=== PATIENT | female | born 1980 | race Caucasian/White ===

== ENCOUNTER 2017-03-14 19:57 | Inpatient (IN) | payer MEDICARE, MEDICAID ==
[~2017-03-14] VITALS: Ht 154.9 cm; Wt 73.5 kg
[~2017-03-14 19:57] MED LIST: ATOR10TA9 PO
[2017-03-14 21:30] LABS: BLOOD UREA NITROGEN 17 mg/dL (7-18)
[2017-03-14 21:38] LABS: ASPARTATE AMINO TRANSFERASE 67 U/L (15-37)
[2017-03-14] MEDS ORDERED: OMNIPAQUE 350 MG/ML, 100ML BOTTLE ONE (22:28)
[2017-03-14] MEDS ORDERED: SODIUM CHLORIDE 0.9% 1,000 ML IV ONE (23:11)
[2017-03-14] MEDS ORDERED: SODIUM CHLORIDE 0.9% 1,000 ML IV SCH (23:22)
[2017-03-14] MEDS ORDERED: SODIUM CHLORIDE FLUSH 10ML SYR IVF PRN (23:30)
[2017-03-14] MEDS ORDERED: ONDANSETRON 2MG/ML, 2ML IVPush PRN ×2 (23:30)
[2017-03-14] MEDS: BISACODYL 10 MG SUPP PR SCH (23:30)
[2017-03-14] MEDS ORDERED: ACETAMINOPHEN 325 MG TABLET PO PRN (23:30)
[2017-03-15 00:48] VITALS: BP 109/70
[2017-03-15] MEDS: HEPARIN 5,000 UNITS/ML, 1ML SQ SCH ×3 (01:06→16:25)
[2017-03-15 03:07] LABS: HEPATITIS C VIRUS ANTIBODY Nonreactive (Nonreactive)
[2017-03-15 06:17] LABS: ASPARTATE AMINO TRANSFERASE 38 U/L (15-37); BLOOD UREA NITROGEN 20 mg/dL (7-18)
[2017-03-15] MEDS: BISACODYL 10 MG SUPP PR SCH ×2 (09:00→21:00)
[2017-03-15 09:20] VITALS: BP 118/74
[2017-03-15] MEDS: morphine SULFATE 10 MG/ML, 1ML IVPush PRN ×2 (09:46→21:21)
[2017-03-15 13:56] VITALS: BP 97/62
[2017-03-15 19:55] VITALS: BP 111/70
[2017-03-15] MEDS ORDERED: POTASSIUM CHLORIDE 40 MEQ in SODIUM CHLORIDE 0.9% 1,000 ML IV SCH ×2 (23:22→23:35)
[2017-03-16] MEDS: HEPARIN 5,000 UNITS/ML, 1ML SQ SCH ×3 (00:01→16:30)
[2017-03-16 07:24] LABS: ASPARTATE AMINO TRANSFERASE 33 U/L (15-37); BLOOD UREA NITROGEN 14 mg/dL (7-18)
[2017-03-16 07:37] VITALS: BP 102/62
[2017-03-16] MEDS: BISACODYL 10 MG SUPP PR SCH ×2 (09:00→19:32)
[2017-03-16] MEDS: D5%-0.45% NACL 1,000 ML IV SCH ×2 (09:45→19:21)
[2017-03-16] MEDS: SENNA/DOCUSATE TABLET PO SCH (09:48)
[2017-03-16] MEDS ORDERED: ACETAMINOPHEN 325 MG TABLET PO PRN (12:30)
[2017-03-16] MEDS ORDERED: OXYcodone IR 5MG TABLET PO PRN (12:30)
[2017-03-16 13:42] VITALS: BP 118/77
[2017-03-16 18:38] VITALS: BP 136/72
[2017-03-17] MEDS: HEPARIN 5,000 UNITS/ML, 1ML SQ SCH ×3 (00:28→16:30)
[2017-03-17 01:54] VITALS: BP 97/60
[2017-03-17] MEDS: D5%-0.45% NACL 1,000 ML IV SCH (05:39)
[2017-03-17 06:02] LABS: BLOOD UREA NITROGEN 4 mg/dL (7-18)
[2017-03-17] MEDS: BISACODYL 10 MG SUPP PR SCH (07:40)
[2017-03-17 07:44] VITALS: BP 109/60
[2017-03-17] MEDS: SENNA/DOCUSATE TABLET PO SCH (09:00)
[2017-03-17] MEDS ORDERED: MAGNESIUM SULFATE PMX 2GM/50ML 50 ML IV ONE (11:00)
[2017-03-17] MEDS ORDERED: POTASSIUM PHOSPHATE 44 MEQ in SODIUM CHLORIDE 0.9% 500 ML IV ONE (11:00)
[2017-03-17] MEDS ORDERED: SENN1TAB7 PO (13:26)
[2017-03-17] MEDS ORDERED: BISA10SU65 PR (13:26)
[2017-03-17 14:28] VITALS: BP 111/64
[2017-03-17] MEDS ORDERED: POTASSIUM CHLORIDE 20 MEQ TAB.ER.PRT PO SCH (17:00)
== END 2017-03-17 17:05 | disposition home or self-care (01) | DRG 389 ==
LOC: ED 22:16 → EDIP 23:11 → 3NE 03-15 00:30
DX: K56.7 Ileus, unspecified (principal); E44.1 Mild protein-calorie malnutrition; G71.0 Muscular dystrophy; D72.829 Elevated white blood cell count, unspecified; D75.1 Secondary polycythemia; E78.00 Pure hypercholesterolemia, unspecified; E78.5 Hyperlipidemia, unspecified; E83.39 Other disorders of phosphorus metabolism; E83.42 Hypomagnesemia; E86.0 Dehydration; E87.6 Hypokalemia; Z83.3 Family history of diabetes mellitus; Z87.820 Personal history of traumatic brain injury; Z90.710 Acquired absence of both cervix and uterus; Z68.30 Body mass index [BMI] 30.0-30.9, adult; K22.4 Dyskinesia of esophagus
CPT/HCPCS: 36415; 74000; 74177; 74250; 76700; 80048; 80053; 80074; 81003; 82550; 83690; 83735; 84100; 84439; 84443; 84481; 84703; 85025; 96360; J1644; J3480; Q9967; J2270; J3475; J7030; J7040

== ENCOUNTER 2017-03-28 16:40 | Emergency (ER) | payer MEDICARE, MEDICAID ==
[~2017-03-28] VITALS: Ht 152.4 cm; Wt 64.3 kg
[~2017-03-28 16:40] MED LIST changes: +BISA10SU65 PR; +SENN1TAB7 PO
[2017-03-28 16:48] VITALS: BP 124/75
[2017-03-28] MEDS ORDERED: HYDROcodone/APAP 7.5-325MG/15ML UDC PO ONE (18:00)
[2017-03-28] MEDS ORDERED: HYDROcodone/APAP 7.5-325MG/15ML UDC ONE (18:09)
== END 2017-03-28 19:00 | disposition home or self-care (01) ==
LOC: ED 18:45
DX: J02.8 Acute pharyngitis due to other specified organisms (principal); B97.89 Other viral agents as the cause of diseases classified elsewhere; E78.00 Pure hypercholesterolemia, unspecified
CPT/HCPCS: 87081; 87880; 99284

== ENCOUNTER 2018-12-06 19:57 | Inpatient (IN) | payer MEDICARE, MEDICAID ==
[~2018-12-06] VITALS: Ht 152.4 cm; Wt 68.1 kg
[~2018-12-06 19:57] MED LIST changes: -SENN1TAB7 PO; +SENN1TAB8 PO
[2018-12-06] MEDS ORDERED: POLY17PO29 PO (20:12)
--- NOTE | 2018-12-06 20:13 | NUR ---
SHAILESH. REPORT RECEIVED FROM EMS. PT DANCED AND ROLLED RIGHT ANKLE AROUND 6PM TODAY. PT C/O RIGHT ANKLE PAIN 10/10 AT THIS TIME. DORSALIS PEDAL PULSE +2 BILATERALLY. SKIN INTACT. PT AOX4. RESPS EVEN AND UNLABORED. PT STATES " I CAN'T WALK NOW." BP/SPO2 MONITORS IN PLACE. CALL LIGHT WITHIN REACH. AWAITING EDMD ASSESSMENT AT THIS TIME.
--- NOTE | 2018-12-06 21:17 | NUR ---
PT PROVIDED BEDPAN TO URINATE.
[2018-12-06] MEDS ORDERED: HYDROcodone/APAP 5/325 TABLET ONE (21:20)
--- NOTE | 2018-12-06 21:25 | NUR ---
PT MEDICATED PER EMAR. PT TOLERATED WELL. PT AOX4. RESPS EVEN AND UNLABORED. EDMD AT BEDSIDE AT THIS TIME.
--- NOTE | 2018-12-06 21:29 | NUR ---
preceptor note: radiology reviewed by EVENS Arguello and KARLA Sanchez. Orthopedist consulted by
[2018-12-06] MEDS ORDERED: HYDROcodone/APAP 5/325 TABLET PO ONE (21:30)
[2018-12-06] MEDS ORDERED: MORPHINE SULFATE 4 MG/ML, 1ML ONE (22:49)
--- NOTE | 2018-12-06 22:49 | NUR ---
PIV PLACED BY THIS RN USING ULTRASOUND. PT TOLERATED WELL. EDT AT BEDSIDE TO PLACE SPLINT AT THIS TIME.
--- NOTE | 2018-12-06 22:50 | NUR ---
PT'S PAIN LEVEL IS STILL 10/10 AT THIS TIME. EDMD NOTIFIED.
[2018-12-06] MEDS ORDERED: ONDANSETRON 2MG/ML, 2ML ONE (22:51)
--- NOTE | 2018-12-06 22:57 | NUR ---
PT MEDICATED PER EMAR. PT TOLERATED WELL. PT'S AOX4. RESPS EVEN AND UNLABORED.
[2018-12-06] MEDS ORDERED: MORPHINE SULFATE 4 MG/ML, 1ML IVPush PRN (23:00)
[2018-12-06] MEDS ORDERED: ONDANSETRON 2MG/ML, 2ML IVPush ONE (23:00)
--- NOTE | 2018-12-06 23:04 | NUR ---
SBAR REPORT GIVEN TO SPEEDY JONES. ALL QUESTIONS ANSWERED.
[2018-12-06 23:39] VITALS: BP 115/73
[2018-12-07] MEDS ORDERED: SODIUM CHLORIDE 0.9% 1,000 ML IV SCH (00:09)
[2018-12-07] MEDS ORDERED: BISACODYL 10 MG SUPP PR PRN (00:30)
[2018-12-07] MEDS: ATORVASTATIN 10 MG TABLET PO SCH ×2 (00:30→21:35)
[2018-12-07] MEDS ORDERED: ONDANSETRON 2MG/ML, 2ML IVPush PRN (00:30)
[2018-12-07] MEDS: HEPARIN 5,000 UNITS/ML, 1ML SQ SCH ×3 (01:18→10:55)
[2018-12-07 01:25] VITALS: BP 122/78
[2018-12-07] MEDS: morphine SULFATE 10 MG/ML, 1ML IVPush PRN ×3 (03:19→15:06)
[2018-12-07 05:32] LABS: BASOPHILS # (AUTO) 0.03 x10^3/uL (0-0.1); BASOPHILS % (AUTO) 0 % (0-1); EOSINOPHILS # (AUTO) 0.13 x10^3/uL (0-0.4); EOSINOPHILS % (AUTO) 1 % (1-7); LYMPHOCYTES # (AUTO) 2.92 x10^3/uL (1-3.4); LYMPHOCYTES % (AUTO) 24 % (22-44); MD NO; MEAN CORPUSCULAR HEMOGLOBIN 30.7 pg (27.0-34.8); MEAN CORPUSCULAR HGB CONC 31.8 g/dL (32.4-35.8); MEAN CORPUSCULAR VOLUME 96.3 fL (80-100); MEAN PLATELET VOLUME 9.1 fL (7.4-10.4); MONOCYTES # (AUTO) 0.94 x10^3/uL (0.2-0.8); MONOCYTES % (AUTO) 8 % (2-9); NEUTROPHILS # (AUTO) 8.17 x10^3/uL (1.8-6.8); NEUTROPHILS % (AUTO) 67 % (42-75); PLATELET COUNT 295 x10^3/uL (130-400); RED BLOOD COUNT 4.47 x10^6/uL (3.82-5.3); RED CELL DISTRIBUTION WIDTH 15.1 % (9.6-15.2)
[2018-12-07 05:46] LABS: CALCIUM 8.5 mg/dL (8.5-10.1); CHLORIDE 117 mmol/L (98-107)
[2018-12-07 05:52] LABS: ALANINE AMINOTRANSFERASE 70 U/L (12-78); ALBUMIN 2.8 g/dL (3.4-5.0); ALKALINE PHOSPHATASE 243 U/L (45-117); ANION GAP 4 mmol/L (5-15); BILIRUBIN,TOTAL 0.4 mg/dL (0.2-1.0); CREATININE 0.34 mg/dL (0.55-1.02); TOTAL PROTEIN 6.6 g/dL (6.4-8.2)
[2018-12-07 07:33] VITALS: BP 106/62
[2018-12-07] MEDS: SENNA/DOCUSATE TABLET PO SCH (07:44)
[2018-12-07] MEDS: D5%-0.45NACL+KCL 20MEQ 1,000 ML IV SCH (10:53)
[2018-12-07 12:25] VITALS: BP 96/62
[2018-12-07] MEDS ORDERED: NEOSPORIN OINT, 15GM ONE (15:12)
[2018-12-07] MEDS ORDERED: BUPIVACAINE/PF-EPI 0.5% 1:200K ONE (15:12)
[2018-12-07] MEDS ORDERED: PROPOFOL 10 MG/ML, 20ML ONE (18:36)
[2018-12-07] MEDS ORDERED: SUGAMMADEX 200 MG/2 ML IVPush ONE (18:36)
[2018-12-07] MEDS ORDERED: LIDOCAINE 2% 100MG/5ML SYRINGE ONE (18:36)
[2018-12-07] MEDS ORDERED: DEXAMETHASONE 4 MG/ML, 1ML ONE (18:36)
[2018-12-07] MEDS ORDERED: MIDAZOLAM 1 MG/ML, 2ML ONE (18:39)
[2018-12-07] MEDS ORDERED: FENTANYL PF 100 MCG/2ML ONE (19:10)
[2018-12-07] MEDS ORDERED: ALBUTEROL SULFATE 2.5 MG/3 ML NPPB PRN (20:00)
[2018-12-07] MEDS ORDERED: LORazepam 2 MG/ML, 1ML IVPush PRN (20:00)
[2018-12-07] MEDS ORDERED: FENTANYL PF 100 MCG/2ML IV PRN (20:00)
[2018-12-07] MEDS ORDERED: ONDANSETRON 2MG/ML, 2ML IV PRN (20:00)
[2018-12-07] MEDS ORDERED: MORPHINE SULFATE 4 MG/ML, 1ML IVPush PRN (20:00)
[2018-12-07] MEDS ORDERED: METOCLOPRAMIDE 5 MG/ML, 2ML IV PRN (20:00)
[2018-12-07] MEDS ORDERED: HYDROmorphone 2 MG/ML, 1ML IVPush PRN (20:00)
[2018-12-07] MEDS ORDERED: OXYcodone 5 MG/5 ML ORAL.SOL UDC PO PRN (20:00)
[2018-12-07] MEDS ORDERED: HALOPERIDOL 5 MG/ML IV PRN (20:00)
[2018-12-07] MEDS: ACETAMINOPHEN 325 MG TABLET PO PRN ×2 (20:57→21:00)
[2018-12-07] MEDS ORDERED: ACETAMINOPHEN 650 MG/20.3 ML UDC ONE (20:57)
[2018-12-08 00:50] VITALS: BP 109/61
[2018-12-08] MEDS: HEPARIN 5,000 UNITS/ML, 1ML SQ SCH (00:53)
[2018-12-08] MEDS: D5%-0.45NACL+KCL 20MEQ 1,000 ML IV SCH (03:54)
[2018-12-08] MEDS: CEFAZOLIN PMX 1GM/50ML 50 ML IV SCH ×2 (03:54→11:39)
[2018-12-08 05:26] LABS: BASOPHILS # (AUTO) 0.01 x10^3/uL (0-0.1); BASOPHILS % (AUTO) 0 % (0-1); EOSINOPHILS % (AUTO) 0 % (1-7); LYMPHOCYTES # (AUTO) 0.76 x10^3/uL (1-3.4); LYMPHOCYTES % (AUTO) 6 % (22-44); MD NO; MEAN CORPUSCULAR HEMOGLOBIN 31.5 pg (27.0-34.8); MEAN CORPUSCULAR HGB CONC 32.6 g/dL (32.4-35.8); MEAN CORPUSCULAR VOLUME 96.4 fL (80-100); MONOCYTES # (AUTO) 0.51 x10^3/uL (0.2-0.8); MONOCYTES % (AUTO) 4 % (2-9); NEUTROPHILS % (AUTO) 89 % (42-75); PLATELET COUNT 257 x10^3/uL (130-400); RED BLOOD COUNT 4.11 x10^6/uL (3.82-5.3); RED CELL DISTRIBUTION WIDTH 14.9 % (9.6-15.2)
[2018-12-08] MEDS: ACETAMINOPHEN 325 MG TABLET PO PRN (05:28)
[2018-12-08 05:33] LABS: ALBUMIN 2.5 g/dL (3.4-5.0); ANION GAP 4 mmol/L (5-15); CALCIUM 8.5 mg/dL (8.5-10.1); CHLORIDE 114 mmol/L (98-107)
[2018-12-08 05:37] LABS: ALANINE AMINOTRANSFERASE 52 U/L (12-78); ALKALINE PHOSPHATASE 226 U/L (45-117); BILIRUBIN,TOTAL 0.3 mg/dL (0.2-1.0); CREATININE 0.38 mg/dL (0.55-1.02); TOTAL PROTEIN 6.2 g/dL (6.4-8.2)
[2018-12-08 07:53] VITALS: BP 103/59
[2018-12-08] MEDS: SENNA/DOCUSATE TABLET PO SCH (09:03)
[2018-12-08] MEDS: ENOXAPARIN 40 MG/0.4 ML SQ SCH (09:03)
[2018-12-08] MEDS: OXYcodone/APAP 5/325MG TABLET PO PRN ×2 (10:05→14:23)
[2018-12-08 12:29] VITALS: BP 110/65
[2018-12-08 18:32] VITALS: BP 112/70
[2018-12-08] MEDS: ATORVASTATIN 10 MG TABLET PO SCH (20:58)
[2018-12-09 00:20] VITALS: BP 110/65
[2018-12-09 05:51] LABS: ALBUMIN 2.3 g/dL (3.4-5.0); ANION GAP 4 mmol/L (5-15); CALCIUM 8.3 mg/dL (8.5-10.1); CHLORIDE 116 mmol/L (98-107)
[2018-12-09 05:56] LABS: ALANINE AMINOTRANSFERASE 50 U/L (12-78); ALKALINE PHOSPHATASE 221 U/L (45-117); BILIRUBIN,TOTAL 0.3 mg/dL (0.2-1.0); CREATININE 0.47 mg/dL (0.55-1.02); TOTAL PROTEIN 5.8 g/dL (6.4-8.2)
[2018-12-09 06:38] VITALS: BP 113/67
[2018-12-09] MEDS: SENNA/DOCUSATE TABLET PO SCH (09:12)
[2018-12-09] MEDS: ENOXAPARIN 40 MG/0.4 ML SQ SCH (09:13)
[2018-12-09] MEDS: OXYcodone/APAP 5/325MG TABLET PO PRN ×2 (09:26→17:28)
[2018-12-09] MEDS: POLYETHYLENE GLYCOL 17 GM PACKET PO PRN (09:26)
[2018-12-09] MEDS ORDERED: DEXTROSE 5% 1,000 ML IV SCH (09:30)
[2018-12-09 13:06] VITALS: BP 110/62
[2018-12-09 19:03] VITALS: BP 113/66
[2018-12-09] MEDS: ATORVASTATIN 10 MG TABLET PO SCH (21:00)
[2018-12-10 02:07] VITALS: BP 113/68
[2018-12-10] MEDS: OXYcodone/APAP 5/325MG TABLET PO PRN ×2 (02:10→10:53)
[2018-12-10 05:56] LABS: ANION GAP 4 mmol/L (5-15); CALCIUM 8.6 mg/dL (8.5-10.1); CHLORIDE 111 mmol/L (98-107)
[2018-12-10 05:58] LABS: CREATININE 0.27 mg/dL (0.55-1.02)
[2018-12-10 05:59] LABS: BASOPHILS # (AUTO) 0.05 x10^3/uL (0-0.1); BASOPHILS % (AUTO) 1 % (0-1); EOSINOPHILS # (AUTO) 0.26 x10^3/uL (0-0.4); EOSINOPHILS % (AUTO) 3 % (1-7); LYMPHOCYTES # (AUTO) 2.13 x10^3/uL (1-3.4); LYMPHOCYTES % (AUTO) 23 % (22-44); MD NO; MEAN CORPUSCULAR HEMOGLOBIN 31.9 pg (27.0-34.8); MEAN CORPUSCULAR HGB CONC 33.6 g/dL (32.4-35.8); MEAN CORPUSCULAR VOLUME 94.9 fL (80-100); MEAN PLATELET VOLUME 8.7 fL (7.4-10.4); MONOCYTES # (AUTO) 0.84 x10^3/uL (0.2-0.8); MONOCYTES % (AUTO) 9 % (2-9); NEUTROPHILS # (AUTO) 6.16 x10^3/uL (1.8-6.8); NEUTROPHILS % (AUTO) 65 % (42-75); PLATELET COUNT 232 x10^3/uL (130-400); RED CELL DISTRIBUTION WIDTH 14.6 % (9.6-15.2)
[2018-12-10 07:00] VITALS: BP 106/59
[2018-12-10 08:00] LABS: ALBUMIN 2.2 g/dL (3.4-5.0); BILIRUBIN, DIRECT 0.4 mg/dL (0.1-0.2)
[2018-12-10 08:02] LABS: BILIRUBIN,INDIRECT 0.3 mg/dL (0.0-2.0); BILIRUBIN,TOTAL 0.7 mg/dL (0.2-1.0); TOTAL PROTEIN 5.9 g/dL (6.4-8.2)
[2018-12-10] MEDS ORDERED: LACTULOSE 20 GM/30 ML UDC PO ONE (08:30)
[2018-12-10] MEDS: ENOXAPARIN 40 MG/0.4 ML SQ SCH (08:34)
[2018-12-10] MEDS: SENNA/DOCUSATE TABLET PO SCH (08:34)
[2018-12-10] MEDS ORDERED: DEXTROSE 5% 1,000 ML IV SCH (09:30)
[2018-12-10] MEDS ORDERED: BISACODYL 10 MG SUPP PR SCH (11:00)
[2018-12-10 13:06] VITALS: BP 121/65
[2018-12-10] MEDS ORDERED: MAGNESIUM CITRATE 300ML ORAL SOL PO ONE (14:00)
[2018-12-10] MEDS ORDERED: MAGN296S9 PO (14:04)
[2018-12-10] MEDS ORDERED: TRAM50TA2 PO (14:04)
[2018-12-10] MEDS ORDERED: OXYC1TAB7 PO (14:04)
[2018-12-10] MEDS ORDERED: ENOX40SY4 SQ (14:04)
[2018-12-10] MEDS ORDERED: ACET325T14 PO (14:04)
[2018-12-10] MEDS ORDERED: BISA10SU65 PR (14:04)
[2018-12-10] MEDS ORDERED: SENN1TAB8 PO (14:04)
[2018-12-10] MEDS: POLYETHYLENE GLYCOL 17 GM PACKET PO PRN (14:21)
[2018-12-10 16:37] VITALS: BP 125/78
== END 2018-12-10 16:46 | DRG 492 ==
LOC: ED 21:09 → EDIP 22:36 → SUATTDRO 22:39 → 4NOR 23:00
PROVIDERS: ADMIT Hospitalist; ATTEND Hospitalist
PROC: BW1C1ZZ Fluoroscopy of Lower Extremity using Low Osmolar Contrast (ICD-10-PCS; 2018-12-07)
PROC: 0QSJ04Z Reposition Right Fibula with Internal Fixation Device, Open Approach (ICD-10-PCS; principal; 2018-12-07 18:45)
PROC: 0QSG06Z Reposition Right Tibia with Intramedullary Internal Fixation Device, Open Approach (ICD-10-PCS; 2018-12-07 18:45)
DX: S82.231A Displaced oblique fracture of shaft of right tibia, initial encounter for closed fracture (principal); E43 Unspecified severe protein-calorie malnutrition; E87.0 Hyperosmolality and hypernatremia; E78.00 Pure hypercholesterolemia, unspecified; E78.5 Hyperlipidemia, unspecified; G71.00 Muscular dystrophy, unspecified; G71.11 Myotonic muscular dystrophy; K59.00 Constipation, unspecified; S82.53XA Displaced fracture of medial malleolus of unspecified tibia, initial encounter for closed fracture; S82.61XA Displaced fracture of lateral malleolus of right fibula, initial encounter for closed fracture; W01.0XXA Fall on same level from slipping, tripping and stumbling without subsequent striking against object, initial encounter; X50.1XXA Overexertion from prolonged static or awkward postures, initial encounter; Z87.820 Personal history of traumatic brain injury; Z83.3 Family history of diabetes mellitus; Z90.710 Acquired absence of both cervix and uterus; Z88.8 Allergy status to other drugs, medicaments and biological substances; Z68.29 Body mass index [BMI] 29.0-29.9, adult
CPT/HCPCS: 29515; 36415; 76000; 80048; 80053; 80076; 85025; C1713; G0378; J0690; J1100; J1644; J1650; J2250; J2405; J2704; J3010; J7070; J2270; J3480; J7030

== ENCOUNTER 2019-02-18 17:20 | Inpatient (IN) | payer MEDICARE, MEDICAID ==
[~2019-02-18] VITALS: Ht 157.5 cm; Wt 60.8 kg
[~2019-02-18 17:20] MED LIST changes: +ACET325T14 PO; +ENOX40SY4 SQ; +ETOMIDATE 20 MG/10 ML ONE; +MAGN296S9 PO; +MIDAZOLAM 1 MG/ML, 5ML ONE; +OXYC1TAB7 PO; +POLY17PO29 PO; +PROPOFOL 10 MG/ML, 100ML IV ONE; +SENN-177 PO; -SENN1TAB8 PO; +SUCCINYLCHOLINE 20 MG/ML, 10ML ONE; +TRAM50TA2 PO
[2019-02-18] MEDS ORDERED: SODIUM CHLORIDE FLUSH 10ML SYR IVF ONE (18:00)
[2019-02-18] MEDS ORDERED: ACETAMINOPHEN 325 MG TABLET PO ONE (18:00)
[2019-02-18] MEDS ORDERED: ACETAMINOPHEN 325 MG TABLET ONE (18:05)
[2019-02-18 18:28] LABS: BASOPHILS % (AUTO) 0 % (0-1); EOSINOPHILS % (AUTO) 0 % (1-7); LYMPHOCYTES # (AUTO) 0.27 x10^3/uL (1-3.4); LYMPHOCYTES % (AUTO) 2 % (22-44); MD NO; MEAN CORPUSCULAR HEMOGLOBIN 31.1 pg (27.0-34.8); MEAN CORPUSCULAR HGB CONC 32.7 g/dL (32.4-35.8); MEAN CORPUSCULAR VOLUME 95.2 fL (80-100); MEAN PLATELET VOLUME 8.8 fL (7.4-10.4); MONOCYTES # (AUTO) 0.98 x10^3/uL (0.2-0.8); MONOCYTES % (AUTO) 6 % (2-9); NEUTROPHILS # (AUTO) 14.11 x10^3/uL (1.8-6.8); NEUTROPHILS % (AUTO) 92 % (42-75); PLATELET COUNT 254 x10^3/uL (130-400); RED BLOOD COUNT 5.48 x10^6/uL (3.82-5.3); RED CELL DISTRIBUTION WIDTH 15.4 % (9.6-15.2)
--- NOTE | 2019-02-18 18:34 | NUR ---
Pt presents to ED from [facility] with c/o productive cough, generalized weakness, and fevers for one week. Pt has audible rhonci from bedside. Pt wearing 5L oxygen via NC at is between 95-98%, pt does not wear oxygen at baseline. Pt is drowsy but easily arousable to voice and is oriented x 4. Pt resting on gurney connected to secured entrance monitor, NIBP, and continous pulse ox. Both bed rails up for safety measures. Call light within reach. PIV attempting to be established. Ultrasound PIV to be done by ED balance staff staker.
[2019-02-18 18:38] LABS: ALBUMIN 3.3 g/dL (3.4-5.0); CALCIUM 9.6 mg/dL (8.5-10.1); CREATININE 0.53 mg/dL (0.55-1.02)
[2019-02-18 18:42] LABS: ANION GAP 8 mmol/L (5-15); CHLORIDE 113 mmol/L (98-107)
--- NOTE | 2019-02-18 18:42 | NUR ---
ARRIVED IN ROOM, PT REMOVED NC AND IS REFUSING NC TO BE PLACED BACK ON. NON-REBREATHER MASK PLACED ON PT AT 6L AND PT IS AT 76%. ED MD AT BEDSIDE. ED MD REQUESTING RSI KIT AND PREPARE FOR INTUBATION.
--- NOTE | 2019-02-18 18:56 | NUR ---
At 185 20 mg of Etomidate and 100 mg of succinycholine provided piv per ED MD verbal order and EMAR. AT 1851 8.0 ET tube placed at 23 at right upper lip.
[2019-02-18] MEDS ORDERED: ETOMIDATE 20 MG/10 ML IV ONE (19:00)
[2019-02-18] MEDS ORDERED: SUCCINYLCHOLINE 20 MG/ML, 10ML IVPush ONE (19:00)
[2019-02-18] MEDS ORDERED: SODIUM CHLORIDE 0.9% 1,000ML IVBOLUS ONE ×2 (19:00→20:00)
[2019-02-18] MEDS ORDERED: MIDAZOLAM 1 MG/ML, 2ML IVPush ONE (19:00)
--- NOTE | 2019-02-18 19:00 | NUR ---
ED staff at bedside providing medication per EMAR. RT at bedside managing ventilator. X-ray at bedside checking tube placement.
[2019-02-18] MEDS: PROPOFOL 100 ML IV PRN (19:07)
--- NOTE | 2019-02-18 19:07 | NUR ---
THIS RN ASSISTED WITH PLACING PIV IN PT AND MEDICATING WITH RSI MEDICATIONS FOR INTUBATION. PT HAD SUDDEN RESPIRATORY COMPROMISE THAT THIS RN AND DREA RN RESPONDED TO AND GOT DR. RODRIGUEZ TO BEDSIDE TO EVAULATE. THIS RN ASSITED AND PASSED INFORMATION TO INCOMING QUINCY JONES. ANA RT MANAGING VENT AT THIS TIME.
--- NOTE | 2019-02-18 19:10 | NUR ---
LATE note for 185. ROBERT Rubin at bedside. Provided bedside report to ROBERT Rubin. All questions answered, ROBERT Rubin to assume care of pt.
--- NOTE | 2019-02-18 19:29 | NUR ---
ASSUMED CARE OF PATIENT. REPORT GIVEN FROM ROBERT GORDON DR IN ROOM
[2019-02-18] MEDS: MIDAZOLAM 1 MG/ML, 2ML IVPush PRN ×4 (19:39→22:52)
[2019-02-18] MEDS ORDERED: MIDAZOLAM HCL 25 MG in SODIUM CHLORIDE 0.9% 245 ML IV PRN (19:47)
[2019-02-18] MEDS ORDERED: SODIUM CHLORIDE 0.9% 1,000 ML IV ONE ×2 (19:47→21:30)
[2019-02-18] MEDS ORDERED: CEFTRIAXONE PMX 1GM/50ML 50 ML ONE (19:52)
--- NOTE | 2019-02-18 19:52 | NUR ---
both blood cultures drawn before abx given
[2019-02-18] MEDS ORDERED: AZITHROMYCIN 500 MG in SODIUM CHLORIDE 0.9% 250 ML IVPB ONE (20:00)
[2019-02-18] MEDS ORDERED: CEFTRIAXONE PMX 1GM/50ML 50 ML IVPB ONE (20:00)
--- NOTE | 2019-02-18 20:03 | NUR ---
LAB IN ROOM GETTING ABG.
--- NOTE | 2019-02-18 20:36 | NUR ---
DR RODRIGUEZ IN ROOM FOR CENTRAL LINE
[2019-02-18] MEDS ORDERED: PROPOFOL 100 ML IV PRN (20:50)
[2019-02-18] MEDS ORDERED: PHARMACY MAY ADJ FOR RENAL FX MC SCH (21:00)
[2019-02-18] MEDS ORDERED: LIDOCAINE-MPF 1%, 2ML ENDO PRN (21:00)
[2019-02-18] MEDS: INSULIN LISPRO 100 UNITS/ML, PEN SQ-INSULIN SCH (21:00)
[2019-02-18] MEDS ORDERED: LACTULOSE 20 GM/30 ML UDC NG PRN (21:00)
[2019-02-18] MEDS ORDERED: SENNA/DOCUSATE TABLET NG PRN (21:00)
[2019-02-18] MEDS ORDERED: DEXTROSE 50%, 50ML SYRINGE IVPush PRN (21:00)
[2019-02-18] MEDS ORDERED: BISACODYL 10 MG SUPP PR PRN ×2 (21:00→22:30)
[2019-02-18] MEDS ORDERED: DEXTROSE 4 GM TAB.CHEW PO PRN (21:00)
[2019-02-18] MEDS ORDERED: SENNA 176 MG/5 ML ORAL SOL NG PRN (21:00)
[2019-02-18] MEDS ORDERED: GLUCAGON 1 MG IM PRN (21:00)
[2019-02-18] MEDS ORDERED: MIDAZOLAM 1 MG/ML, 2ML ONE (21:03)
[2019-02-18] MEDS: NOREPINEPHRINE 4 MG in SODIUM CHLORIDE 0.9% 246 ML IV PRN (21:11)
--- NOTE | 2019-02-18 21:25 | NUR ---
PT READY FOR CT
[2019-02-18 21:28] LABS: INTERNATIONAL NORMALIZED RATIO 1.01 (0.93-1.1); PROTHROMBIN TIME 10.6 Seconds (9.6-11.5)
[2019-02-18] MEDS ORDERED: NOREPINEPHRINE 4 MG in SODIUM CHLORIDE 0.9% 246 ML IV PRN (21:30)
[2019-02-18] MEDS: CEFTRIAXONE PMX 1GM/50ML 50 ML IV SCH (21:30)
[2019-02-18] MEDS ORDERED: SODIUM CHLORIDE FLUSH 10ML SYR IVF PRN (21:30)
[2019-02-18 21:47] LABS: TROPONIN I 0.104 ng/mL (0.000-0.045)
--- NOTE | 2019-02-18 21:47 | NUR ---
PT IN CT. DR RODRIGUEZ IN CT WITH PATIENT. RT IN CT
[2019-02-18] MEDS ORDERED: OMNIPAQUE 350 MG/ML, 100ML BOTTLE ONE (21:56)
[2019-02-18 22:28] LABS: MICROSCOPIC INDICATED
[2019-02-18] MEDS ORDERED: DOCUSATE 100 MG CAPSULE PO PRN (22:30)
[2019-02-18] MEDS: GUAIFENESIN 200 MG TABLET PO SCH (22:30)
[2019-02-18] MEDS ORDERED: morphine SULFATE 10 MG/ML, 1ML IVPush PRN (22:30)
[2019-02-18] MEDS ORDERED: hydrALAzine 20 MG/ML, 1ML IVPush PRN (22:30)
[2019-02-18] MEDS ORDERED: POTASSIUM CHLORIDE 40 MEQ in SODIUM CHLORIDE 0.9% 500 ML IV ONE (22:30)
[2019-02-18] MEDS ORDERED: ONDANSETRON ODT 4 MG PO PRN (22:30)
[2019-02-18] MEDS ORDERED: POLYETHYLENE GLYCOL 17 GM PACKET PO PRN (22:30)
[2019-02-18] MEDS ORDERED: ONDANSETRON 2MG/ML, 2ML IVPush PRN (22:30)
[2019-02-18] MEDS: FAMOTIDINE 20 MG/2 ML IVPush SCH (22:30)
[2019-02-18] MEDS ORDERED: PROMETHAZINE 25 MG/ML, 1ML IM PRN (22:30)
[2019-02-18] MEDS ORDERED: PIPERACILLIN/TAZO/PMX 3.375GM 50 ML ONE (22:43)
--- NOTE | 2019-02-18 22:43 | NUR ---
HOLD ZITHROMAX PER DR DAWN
[2019-02-18] MEDS: PIPERACILLIN/TAZO/PMX 3.375GM 50 ML IV SCH (22:51)
--- NOTE | 2019-02-18 22:53 | NUR ---
DR DAWN AWARE OF VS
[2019-02-18] MEDS ORDERED: FAMOTIDINE 20 MG/2 ML ONE (22:58)
[2019-02-18] MEDS: FAMOTIDINE 20 MG/2 ML IV SCH (23:00)
[2019-02-18] MEDS: ALBUTEROL/IPRATROPIUM 2.5MG/0.5MG, 3 ML INLINE SCH (23:00)
[2019-02-18] MEDS: SODIUM CHLORIDE FLUSH 10ML SYR IVF SCH (23:00)
[2019-02-18 23:02] LABS: HEMOGLOBIN A1C 5.3 % (4.2-6.3)
[2019-02-18] MEDS ORDERED: ALBUTEROL/IPRATROPIUM 2.5MG/0.5MG, 3 ML ONE (23:12)
[2019-02-18 23:16] LABS: FREE T4 (FREE THYROXINE) 1.18 ng/dL (0.76-1.46); THYROID STIMULATING HORMONE 0.241 mIU/L (0.358-3.740)
[2019-02-18] MEDS: SODIUM CHLORIDE 0.9% 1,000 ML IV SCH (23:25)
--- NOTE | 2019-02-18 23:26 | NUR ---
RT AT BEDSIDE.
[2019-02-18] MEDS ORDERED: ACETAMINOPHEN 650 MG SUPP PR PRN (23:30)
[2019-02-18] MEDS ORDERED: ACETAMINOPHEN 650 MG SUPP ONE (23:30)
--- NOTE | 2019-02-18 23:49 | NUR ---
FAMILY AT BED. DR MERINO AWARE OF VS. RECTAL TYLENOL GIVEN RT IN ROOM WILL CONTINUE TO MONITOR.
[2019-02-18] MEDS ORDERED: HEPARIN 5,000 UNITS/ML, 1ML ONE (23:54)
[2019-02-18] MEDS: HEPARIN 5,000 UNITS/ML, 1ML SQ SCH (23:56)
[2019-02-19] MEDS: METRONIDAZOLE PMX 500MG/100ML 100 ML IV SCH ×4 (00:08→18:37)
[2019-02-19] MEDS: ATORVASTATIN 10 MG TABLET PO SCH (00:12)
--- NOTE | 2019-02-19 00:13 | NUR ---
DR ALFARO HAS SEEN PATIENT. WILL CONTINUE TO MONITOR.
[2019-02-19] MEDS: NOREPINEPHRINE 4 MG in SODIUM CHLORIDE 0.9% 246 ML IV PRN ×5 (00:17→22:50)
--- NOTE | 2019-02-19 00:24 | NUR ---
REPORT GIVEN TO ROBETR GASPAR FOR LUNCH
[2019-02-19] MEDS ORDERED: FENTANYL PF 2,500 MCG in SODIUM CHLORIDE 0.9% 200 ML IV PRN (00:30)
[2019-02-19] MEDS ORDERED: ACETAMINOPHEN 325 MG SUPP ONE (00:50)
--- NOTE | 2019-02-19 01:08 | NUR ---
TASK RN: PTS LEVOPHED TITRATED UP TO 10MCG AT THIS TIME MAP HAS BEEN BELOW 55 ON 7MCG. PT ALSO MOVED TO ICU HOSPITAL BED FOR SKIN PROTECTION AND COMFORT. PT ALSO CLEANED. PT HAS ONE BM AND WAS GIVEN ME TYLENOL 650 MG AND ORDER WAS CLARIFIED WITH MD MERINO. PT TEMP IMPROVING.
--- NOTE | 2019-02-19 01:25 | NUR ---
FAMILY AT BEDSIDE. RADIO SURVEY WORKER ON NSR NOTED DR MERINO AWARE OF VS. TYLENOL GIVEN WILL CONTINUE TO MONITOR.
[2019-02-19] MEDS ORDERED: ACETAMINOPHEN 650 MG SUPP PR ONE (01:30)
[2019-02-19] MEDS: VASOPRESSIN 100 UNIT in SODIUM CHLORIDE 0.9% 495 ML IV PRN ×2 (02:02→03:27)
--- NOTE | 2019-02-19 02:15 | NUR ---
lab in room. rt in room. cardiac care unit nurse on NSR noted. VS stable. will continue to monitor.
[2019-02-19 02:45] LABS: TROPONIN I 0.326 ng/mL (0.000-0.045)
--- NOTE | 2019-02-19 03:24 | NUR ---
PT MOVED TO T3. COOLING MEASURES IN PLACE. COOLING BLANKET ON. VS STABLE TEAM LEADER/RESEARCH PSYCHOLOGIST ON. NSR NOTED. WILL CONTINUE TO MONITOR.
[2019-02-19] MEDS ORDERED: NOREPINEPHRINE 8 MG in SODIUM CHLORIDE 0.9% 246 ML IV PRN (03:30)
[2019-02-19] MEDS ORDERED: NOREPINEPHRINE 8 MG in SODIUM CHLORIDE 0.9% 242 ML IV PRN (03:30)
[2019-02-19] MEDS ORDERED: PROPOFOL 100 ML IV ONE (03:32)
[2019-02-19] MEDS: PROPOFOL 100 ML IV PRN ×2 (04:22→18:27)
[2019-02-19] MEDS ORDERED: PIPERACILLIN/TAZO/PMX 3.375GM 50 ML ONE (04:28)
[2019-02-19] MEDS: PIPERACILLIN/TAZO/PMX 3.375GM 50 ML IV SCH ×4 (04:34→22:53)
--- NOTE | 2019-02-19 04:36 | NUR ---
UNDERCOVER OPERATOR ON. NSR NOTED. VS STABLE AT THIS TIME. PT'S TEMP IS 101.3 COOLING BLANKET ON. WILL CONTINUE TO MONITOR.
[2019-02-19] MEDS: ALBUTEROL/IPRATROPIUM 2.5MG/0.5MG, 3 ML INLINE SCH ×5 (05:00→22:37)
[2019-02-19] MEDS ORDERED: METRONIDAZOLE PMX 500MG/100ML 100 ML ONE ×2 (05:43)
--- NOTE | 2019-02-19 06:03 | NUR ---
LAB IN ROOM
--- NOTE | 2019-02-19 06:20 | NUR ---
attempted to call MD to notify of trop will attempt again
[2019-02-19] MEDS ORDERED: ALBUTEROL/IPRATROPIUM 2.5MG/0.5MG, 3 ML ONE (06:33)
[2019-02-19 06:35] LABS: CHLORIDE 124 mmol/L (98-107)
[2019-02-19 06:37] LABS: MEAN CORPUSCULAR HEMOGLOBIN 31.4 pg (27.0-34.8); MEAN CORPUSCULAR HGB CONC 32.9 g/dL (32.4-35.8); MEAN CORPUSCULAR VOLUME 95.4 fL (80-100); MEAN PLATELET VOLUME 8.9 fL (7.4-10.4); PLATELET COUNT 284 x10^3/uL (130-400); RED BLOOD COUNT 4.39 x10^6/uL (3.82-5.3); RED CELL DISTRIBUTION WIDTH 15.4 % (9.6-15.2)
[2019-02-19] MEDS ORDERED: SODIUM BICARBONATE 1 MEQ/ML, 50ML VIAL ONE (06:38)
[2019-02-19 06:41] LABS: ALBUMIN 1.9 g/dL (3.4-5.0); ANION GAP 8 mmol/L (5-15); CALCIUM 7.2 mg/dL (8.5-10.1); CHOLESTEROL, TOTAL 93 mg/dL (140-239); CREATININE 0.33 mg/dL (0.55-1.02)
[2019-02-19 06:54] LABS: MD YES
[2019-02-19 06:56] LABS: BAND#(MANUAL) 8.05 x10^3/uL; BANDS%(MANUAL) 46 % (0-7); LYMPH#(MANUAL) 1.05 x10^3/uL (1-3.4); LYMPHS% (MANUAL) 6 % (22-44); METAMYELOCYTES# (MANUAL) 0.53 x10^3/uL (0-0); METAMYELOCYTES% (MANUAL) 3 % (0-1); MONOS#(MANUAL) 0.18 x10^3/uL (0.3-2.7); MONOS% (MANUAL) 1 % (2-9); MYELOCYTES# (MANUAL) 0.18 x10^3/uL (0-0); MYELOCYTES% (MANUAL) 1 % (0-0); SEG#(MANUAL) 7.53 x10^3/uL (1.8-6.8); SEGS% (MANUAL) 43 % (42-75)
[2019-02-19 06:58] LABS: <PLATELET ESTIMATE> ADEQUATE; ALANINE AMINOTRANSFERASE 42 U/L (12-78); ALKALINE PHOSPHATASE 187 U/L (45-117); ANISOCYTOSIS 1+; BILIRUBIN,TOTAL 1.3 mg/dL (0.2-1.0); CHOL/HDL RATIO 2.6; HDL CHOL % 39 % (28-40); HDL CHOLESTEROL (DIRECT) 36 mg/dL (40-60); LARGE PLATELETS 1+; LDL CHOLESTEROL,CALCULATED 37 mg/dL (54-169); PMNS WITH VACUOLES 1+; TOTAL PROTEIN 5.4 g/dL (6.4-8.2); TOXIC GRAN 1+; TRIGLYCERIDES 99 mg/dL (50-200); VLDL CHOLESTEROL 20 mg/dL (0-25)
[2019-02-19] MEDS ORDERED: SODIUM BICARBONATE 8.4% 100 MEQ in DEXTROSE 5% 1,000 ML IV SCH (07:00)
[2019-02-19] MEDS ORDERED: SODIUM BICARB 8.4%, 50ML SYRINGE IVPush ONE (07:00)
[2019-02-19] MEDS: INSULIN LISPRO 100 UNITS/ML, PEN SQ-INSULIN SCH ×4 (07:00→21:00)
--- NOTE | 2019-02-19 07:16 | NUR ---
NEW LEVOPHED BAG STARTED. OLD BAG WAS EMPTY. STARTING AT SAME RATE. Addendum: 02/19/19 at 0717 by WFORD SAME RATE OF 30 MCG/MIN.
[2019-02-19 07:17] LABS: TROPONIN I 0.252 ng/mL (0.000-0.045)
--- NOTE | 2019-02-19 07:28 | NUR ---
SBAR BEDSIDE HAND-OFF REPORT RECEIVED FROM RN KORTNEY Moreno ASSUMING CARE OF PATIENT. VS STABLE AT THIS TIME. ALL IV LINES AND MEDS VERIFIED WITH OFF-GOING RN. PATIENT INTUBATED WITH NO COMPLICATIONS AT THIS TIME.
--- NOTE | 2019-02-19 07:28 | NUR ---
REPORT GIVEN TO ROBERT WALDEN
[2019-02-19] MEDS: SODIUM CHLORIDE FLUSH 10ML SYR IVF SCH ×2 (09:00→21:44)
[2019-02-19] MEDS ORDERED: DOXYCYCLINE 100MG CAP PO SCH (09:00)
[2019-02-19] MEDS: FAMOTIDINE 20 MG/2 ML IVPush SCH (09:00)
[2019-02-19 09:14] LABS: TROPONIN I 0.248 ng/mL (0.000-0.045)
[2019-02-19] MEDS ORDERED: POTASSIUM CHLORIDE 30 MEQ in SODIUM CHLORIDE 0.9% 100 ML IV ONE (09:30)
[2019-02-19] MEDS ORDERED: KSCALE TO 4.5 IV SCH (09:30)
[2019-02-19] MEDS: MIDAZOLAM 1 MG/ML, 2ML IVPush PRN (09:51)
[2019-02-19] MEDS: SODIUM CHLORIDE 0.9% 1,000 ML IV SCH (09:53)
[2019-02-19] MEDS: HEPARIN 5,000 UNITS/ML, 1ML SQ SCH ×3 (09:55→22:53)
[2019-02-19] MEDS: FAMOTIDINE 20 MG/2 ML IV SCH ×2 (10:07→21:43)
[2019-02-19] MEDS: GUAIFENESIN 200 MG TABLET PO SCH ×2 (10:09→22:53)
[2019-02-19] MEDS: ACETAMINOPHEN 325 MG TABLET PO PRN (10:48)
[2019-02-19 11:42] LABS: MICROSCOPIC INDICATED
[2019-02-19 11:43] LABS: AMPHETAMINE SCREEN, URINE Negative (Negative); BARBITURATE SCREEN, URINE Negative (Negative); BENZODIAZEPINE SCREEN, URINE Positive (Negative); CANNABINOID SCREEN, URINE Negative (Negative); COCAINE SCREEN, URINE Negative (Negative); METHADONE SCREEN, URINE Negative (Negative); OPIATE SCREEN, URINE Negative (Negative)
[2019-02-19 13:02] LABS: CULTURE INDICATED? YES
[2019-02-19] MEDS ORDERED: POTASSIUM CHLORIDE 20 MEQ in SODIUM CHLORIDE 0.45% 1,000 ML IV SCH (15:00)
[2019-02-19] MEDS: CEFTRIAXONE PMX 1GM/50ML 50 ML IV SCH (21:43)
[2019-02-20] MEDS: METRONIDAZOLE PMX 500MG/100ML 100 ML IV SCH ×4 (00:17→18:39)
[2019-02-20] MEDS: ALBUTEROL/IPRATROPIUM 2.5MG/0.5MG, 3 ML INLINE SCH ×6 (02:17→21:52)
[2019-02-20 04:15] VITALS: BP 110/49
[2019-02-20] MEDS: PIPERACILLIN/TAZO/PMX 3.375GM 50 ML IV SCH ×2 (04:35→10:30)
[2019-02-20 04:59] LABS: MEAN CORPUSCULAR HEMOGLOBIN 31.4 pg (27.0-34.8); MEAN CORPUSCULAR HGB CONC 33.5 g/dL (32.4-35.8); MEAN CORPUSCULAR VOLUME 93.9 fL (80-100); MEAN PLATELET VOLUME 8.4 fL (7.4-10.4); PLATELET COUNT 249 x10^3/uL (130-400); RED BLOOD COUNT 3.91 x10^6/uL (3.82-5.3); RED CELL DISTRIBUTION WIDTH 15.4 % (9.6-15.2)
[2019-02-20 05:06] LABS: ANION GAP 6 mmol/L (5-15); CALCIUM 7.1 mg/dL (8.5-10.1); CHLORIDE 120 mmol/L (98-107)
[2019-02-20 05:07] LABS: CREATININE 0.26 mg/dL (0.55-1.02)
[2019-02-20] MEDS: NOREPINEPHRINE 4 MG in SODIUM CHLORIDE 0.9% 246 ML IV PRN ×4 (05:24→21:44)
[2019-02-20] MEDS: HEPARIN 5,000 UNITS/ML, 1ML SQ SCH ×3 (05:27→20:38)
[2019-02-20 05:36] LABS: MD YES
[2019-02-20 05:40] LABS: BAND#(MANUAL) 2.57 x10^3/uL; LYMPH#(MANUAL) 1.19 x10^3/uL (1-3.4); LYMPHS% (MANUAL) 6 % (22-44); MONOS#(MANUAL) 0.59 x10^3/uL (0.3-2.7); MONOS% (MANUAL) 3 % (2-9); SEGS% (MANUAL) 78 % (42-75)
[2019-02-20 05:46] LABS: ANISOCYTOSIS 1+; BANDS%(MANUAL) 13 % (0-7)
[2019-02-20 05:48] LABS: PMNS WITH VACUOLES 1+; TOXIC GRAN 1+
[2019-02-20 05:49] LABS: <PLATELET ESTIMATE> ADEQUATE; LARGE PLATELETS 1+
[2019-02-20] MEDS ORDERED: SODIUM BICARBONATE 8.4% 100 MEQ in DEXTROSE 5% 1,000 ML IV SCH (07:00)
[2019-02-20] MEDS ORDERED: MAGNESIUM SULFATE PMX 4GM/100M 100 ML IVPB ONE (07:30)
[2019-02-20] MEDS: POTASSIUM CHLORIDE 10% 40 MEQ/30 ML UDC PO SCH ×2 (08:31→20:37)
[2019-02-20] MEDS: SODIUM CHLORIDE FLUSH 10ML SYR IVF SCH ×2 (08:32→20:37)
[2019-02-20] MEDS: FAMOTIDINE 20 MG/2 ML IV SCH ×2 (08:32→20:37)
[2019-02-20] MEDS: GUAIFENESIN 200 MG TABLET PO SCH (08:32)
[2019-02-20] MEDS: INSULIN LISPRO 100 UNITS/ML, PEN SQ-INSULIN SCH ×4 (09:02→20:37)
[2019-02-20] MEDS ORDERED: D5%-0.45NACL+KCL 20MEQ 1,000 ML IV SCH (10:00)
--- NOTE | 2019-02-20 14:04 | NUR ---
TF GOAL: w/ propofol: PROMOTE @ 50ML/HR off propofol: PROMOTE @ 60ML/HR
[2019-02-20] MEDS: ATORVASTATIN 10 MG TABLET PO SCH (20:37)
[2019-02-20] MEDS: CEFTRIAXONE PMX 1GM/50ML 50 ML IV SCH (20:37)
[2019-02-20] MEDS: MIDAZOLAM 1 MG/ML, 2ML IVPush PRN (20:38)
[2019-02-21] MEDS: METRONIDAZOLE PMX 500MG/100ML 100 ML IV SCH ×4 (01:04→17:42)
[2019-02-21] MEDS: ALBUTEROL/IPRATROPIUM 2.5MG/0.5MG, 3 ML INLINE SCH ×6 (02:21→22:00)
[2019-02-21] MEDS: INSULIN LISPRO 100 UNITS/ML, PEN SQ-INSULIN SCH ×4 (03:00→22:06)
[2019-02-21 03:31] LABS: MEAN CORPUSCULAR HEMOGLOBIN 31.3 pg (27.0-34.8); MEAN CORPUSCULAR HGB CONC 33.3 g/dL (32.4-35.8); MEAN CORPUSCULAR VOLUME 93.9 fL (80-100); MEAN PLATELET VOLUME 8.1 fL (7.4-10.4); PLATELET COUNT 282 x10^3/uL (130-400); RED BLOOD COUNT 3.57 x10^6/uL (3.82-5.3); RED CELL DISTRIBUTION WIDTH 15.5 % (9.6-15.2)
[2019-02-21 03:40] LABS: ANION GAP 6 mmol/L (5-15); CALCIUM 7.2 mg/dL (8.5-10.1); CHLORIDE 124 mmol/L (98-107); CREATININE 0.26 mg/dL (0.55-1.02); TRIGLYCERIDES 98 mg/dL (50-200)
[2019-02-21 04:00] VITALS: BP 118/64
[2019-02-21] MEDS: NOREPINEPHRINE 4 MG in SODIUM CHLORIDE 0.9% 246 ML IV PRN (04:27)
[2019-02-21 04:33] LABS: MD YES
[2019-02-21 04:36] LABS: <PLATELET ESTIMATE> ADEQUATE; ANISOCYTOSIS 1+; BAND#(MANUAL) 1.14 x10^3/uL; BANDS%(MANUAL) 6 % (0-7); BASOS#(MANUAL) 0.19 x10^3/uL (0-0.1); BASOS% (MANUAL) 1 % (0-1); LYMPH#(MANUAL) 1.71 x10^3/uL (1-3.4); LYMPHS% (MANUAL) 9 % (22-44); MONOS#(MANUAL) 0.76 x10^3/uL (0.3-2.7); MONOS% (MANUAL) 4 % (2-9); SEGS% (MANUAL) 80 % (42-75)
[2019-02-21 04:37] LABS: <PLT MORPHOLOGY> NORMAL PLT MORPH
[2019-02-21] MEDS: HEPARIN 5,000 UNITS/ML, 1ML SQ SCH ×3 (05:19→22:36)
[2019-02-21] MEDS: PROPOFOL 100 ML IV PRN (05:19)
[2019-02-21] MEDS: FAMOTIDINE 20 MG/2 ML IV SCH ×2 (08:31→21:58)
[2019-02-21] MEDS: SODIUM CHLORIDE FLUSH 10ML SYR IVF SCH ×2 (08:32→21:59)
[2019-02-21] MEDS: HYDROCORTISONE 100 MG INJ. IVPush SCH ×2 (14:35→21:58)
[2019-02-21] MEDS: ATORVASTATIN 10 MG TABLET PO SCH (21:58)
[2019-02-21] MEDS: CEFTRIAXONE PMX 1GM/50ML 50 ML IV SCH (21:58)
[2019-02-22] MEDS: METRONIDAZOLE PMX 500MG/100ML 100 ML IV SCH ×4 (00:45→17:22)
[2019-02-22] MEDS: ALBUTEROL/IPRATROPIUM 2.5MG/0.5MG, 3 ML INLINE SCH ×6 (02:00→22:50)
[2019-02-22] MEDS: HYDROCORTISONE 100 MG INJ. IVPush SCH ×4 (03:36→21:14)
[2019-02-22] MEDS: INSULIN LISPRO 100 UNITS/ML, PEN SQ-INSULIN SCH ×4 (03:44→21:00)
[2019-02-22 04:00] VITALS: BP 107/57
[2019-02-22 04:05] LABS: ANION GAP 3 mmol/L (5-15); CALCIUM 7.8 mg/dL (8.5-10.1); CHLORIDE 120 mmol/L (98-107); CREATININE 0.24 mg/dL (0.55-1.02)
[2019-02-22 04:12] LABS: BASOPHILS % (AUTO) 0 % (0-1); EOSINOPHILS % (AUTO) 0 % (1-7); LYMPHOCYTES # (AUTO) 0.57 x10^3/uL (1-3.4); LYMPHOCYTES % (AUTO) 8 % (22-44); MD NO; MEAN CORPUSCULAR HEMOGLOBIN 31.5 pg (27.0-34.8); MEAN CORPUSCULAR HGB CONC 33.6 g/dL (32.4-35.8); MEAN CORPUSCULAR VOLUME 93.9 fL (80-100); MEAN PLATELET VOLUME 8.3 fL (7.4-10.4); MONOCYTES # (AUTO) 0.45 x10^3/uL (0.2-0.8); MONOCYTES % (AUTO) 6 % (2-9); NEUTROPHILS # (AUTO) 6.29 x10^3/uL (1.8-6.8); NEUTROPHILS % (AUTO) 86 % (42-75); PLATELET COUNT 253 x10^3/uL (130-400); RED BLOOD COUNT 3.47 x10^6/uL (3.82-5.3); RED CELL DISTRIBUTION WIDTH 15.8 % (9.6-15.2)
[2019-02-22] MEDS: HEPARIN 5,000 UNITS/ML, 1ML SQ SCH ×3 (06:14→21:14)
[2019-02-22] MEDS: POTASSIUM CHLORIDE 10% 40 MEQ/30 ML UDC PO SCH ×2 (09:50→17:22)
[2019-02-22] MEDS: SODIUM CHLORIDE FLUSH 10ML SYR IVF SCH ×2 (09:50→21:13)
[2019-02-22] MEDS: FAMOTIDINE 20 MG/2 ML IV SCH ×2 (09:50→21:13)
[2019-02-22] MEDS: ATORVASTATIN 10 MG TABLET PO SCH (21:14)
[2019-02-22] MEDS: CEFTRIAXONE PMX 1GM/50ML 50 ML IV SCH (21:14)
[2019-02-23] MEDS: INSULIN LISPRO 100 UNITS/ML, PEN SQ-INSULIN SCH ×4 (03:00→23:54)
[2019-02-23] MEDS: ALBUTEROL/IPRATROPIUM 2.5MG/0.5MG, 3 ML INLINE SCH ×6 (03:17→22:00)
[2019-02-23] MEDS: HYDROCORTISONE 100 MG INJ. IVPush SCH (03:55)
[2019-02-23 04:03] VITALS: BP 104/50
[2019-02-23 05:03] LABS: ANION GAP 4 mmol/L (5-15); CHLORIDE 118 mmol/L (98-107); CREATININE 0.33 mg/dL (0.55-1.02)
[2019-02-23 05:10] LABS: BASOPHILS % (AUTO) 0 % (0-1); EOSINOPHILS # (AUTO) 0.01 x10^3/uL (0-0.4); EOSINOPHILS % (AUTO) 0 % (1-7); LYMPHOCYTES # (AUTO) 0.71 x10^3/uL (1-3.4); LYMPHOCYTES % (AUTO) 8 % (22-44); MD NO; MEAN CORPUSCULAR HEMOGLOBIN 31.6 pg (27.0-34.8); MEAN CORPUSCULAR HGB CONC 33.3 g/dL (32.4-35.8); MEAN CORPUSCULAR VOLUME 94.6 fL (80-100); MEAN PLATELET VOLUME 8.7 fL (7.4-10.4); MONOCYTES # (AUTO) 0.61 x10^3/uL (0.2-0.8); MONOCYTES % (AUTO) 7 % (2-9); NEUTROPHILS # (AUTO) 7.29 x10^3/uL (1.8-6.8); NEUTROPHILS % (AUTO) 85 % (42-75); PLATELET COUNT 312 x10^3/uL (130-400); RED BLOOD COUNT 3.54 x10^6/uL (3.82-5.3); RED CELL DISTRIBUTION WIDTH 16.2 % (9.6-15.2)
[2019-02-23] MEDS: HEPARIN 5,000 UNITS/ML, 1ML SQ SCH ×3 (05:47→21:09)
[2019-02-23] MEDS: METRONIDAZOLE PMX 500MG/100ML 100 ML IV SCH ×5 (05:47→23:46)
[2019-02-23] MEDS: SODIUM CHLORIDE FLUSH 10ML SYR IVF SCH ×2 (09:11→21:08)
[2019-02-23] MEDS: FAMOTIDINE 20 MG/2 ML IV SCH ×2 (09:11→21:08)
[2019-02-23] MEDS: FENTANYL PF 100 MCG/2ML IVPush PRN (15:23)
[2019-02-23] MEDS: ATORVASTATIN 10 MG TABLET PO SCH (21:08)
[2019-02-23] MEDS: CEFTRIAXONE PMX 1GM/50ML 50 ML IV SCH (21:09)
[2019-02-23] MEDS ORDERED: HYDROCORTISONE 100 MG INJ. IVPush SCH (22:00)
[2019-02-24] MEDS: ALBUTEROL/IPRATROPIUM 2.5MG/0.5MG, 3 ML INLINE SCH ×6 (02:00→22:14)
[2019-02-24 04:11] VITALS: BP 106/48
[2019-02-24 04:22] LABS: BASOPHILS # (AUTO) 0.02 x10^3/uL (0-0.1); BASOPHILS % (AUTO) 0 % (0-1); EOSINOPHILS % (AUTO) 0 % (1-7); LYMPHOCYTES # (AUTO) 0.73 x10^3/uL (1-3.4); LYMPHOCYTES % (AUTO) 9 % (22-44); MD NO; MEAN CORPUSCULAR HEMOGLOBIN 31.7 pg (27.0-34.8); MEAN CORPUSCULAR HGB CONC 33.6 g/dL (32.4-35.8); MEAN CORPUSCULAR VOLUME 94.3 fL (80-100); MEAN PLATELET VOLUME 8.7 fL (7.4-10.4); MONOCYTES # (AUTO) 0.48 x10^3/uL (0.2-0.8); MONOCYTES % (AUTO) 6 % (2-9); NEUTROPHILS # (AUTO) 6.78 x10^3/uL (1.8-6.8); NEUTROPHILS % (AUTO) 85 % (42-75); PLATELET COUNT 240 x10^3/uL (130-400); RED BLOOD COUNT 3.21 x10^6/uL (3.82-5.3); RED CELL DISTRIBUTION WIDTH 15.5 % (9.6-15.2)
[2019-02-24 04:24] LABS: ANION GAP 3 mmol/L (5-15); CALCIUM 7.7 mg/dL (8.5-10.1); CHLORIDE 116 mmol/L (98-107); CREATININE 0.26 mg/dL (0.55-1.02); TRIGLYCERIDES 113 mg/dL (50-200)
[2019-02-24] MEDS: METRONIDAZOLE PMX 500MG/100ML 100 ML IV SCH ×3 (05:37→18:05)
[2019-02-24] MEDS: HEPARIN 5,000 UNITS/ML, 1ML SQ SCH ×3 (05:37→22:46)
[2019-02-24] MEDS: INSULIN LISPRO 100 UNITS/ML, PEN SQ-INSULIN SCH ×3 (05:41→18:07)
[2019-02-24] MEDS: FAMOTIDINE 20 MG/2 ML IV SCH ×2 (08:27→20:33)
[2019-02-24] MEDS: FUROSEMIDE 20 MG/2 ML IV SCH ×2 (08:27→20:33)
[2019-02-24] MEDS: POTASSIUM CHLORIDE 10% 40 MEQ/30 ML UDC PO SCH ×2 (08:28→20:33)
[2019-02-24] MEDS: SODIUM CHLORIDE FLUSH 10ML SYR IVF SCH ×2 (08:28→20:36)
[2019-02-24] MEDS ORDERED: MAGNESIUM SULFATE PMX 2GM/50ML 50 ML IV ONE (08:30)
[2019-02-24] MEDS: FENTANYL PF 100 MCG/2ML IVPush PRN ×2 (15:41→20:34)
[2019-02-24] MEDS: ATORVASTATIN 10 MG TABLET PO SCH (20:33)
[2019-02-24] MEDS: CEFTRIAXONE PMX 1GM/50ML 50 ML IV SCH (20:36)
[2019-02-24] MEDS ORDERED: HYDROCORTISONE 100 MG INJ. IVPush SCH (21:00)
[2019-02-25] MEDS: ALBUTEROL/IPRATROPIUM 2.5MG/0.5MG, 3 ML INLINE SCH ×6 (01:53→22:40)
[2019-02-25] MEDS: FENTANYL PF 100 MCG/2ML IVPush PRN (03:03)
[2019-02-25 04:00] VITALS: BP 118/68
[2019-02-25 04:27] LABS: BASOPHILS # (AUTO) 0.05 x10^3/uL (0-0.1); BASOPHILS % (AUTO) 1 % (0-1); EOSINOPHILS # (AUTO) 0.11 x10^3/uL (0-0.4); EOSINOPHILS % (AUTO) 1 % (1-7); LYMPHOCYTES # (AUTO) 1.51 x10^3/uL (1-3.4); LYMPHOCYTES % (AUTO) 18 % (22-44); MD NO; MEAN CORPUSCULAR HEMOGLOBIN 31.4 pg (27.0-34.8); MEAN CORPUSCULAR HGB CONC 33.5 g/dL (32.4-35.8); MEAN CORPUSCULAR VOLUME 93.7 fL (80-100); MONOCYTES # (AUTO) 0.75 x10^3/uL (0.2-0.8); MONOCYTES % (AUTO) 9 % (2-9); NEUTROPHILS # (AUTO) 5.98 x10^3/uL (1.8-6.8); NEUTROPHILS % (AUTO) 71 % (42-75); PLATELET COUNT 335 x10^3/uL (130-400); RED BLOOD COUNT 3.31 x10^6/uL (3.82-5.3); RED CELL DISTRIBUTION WIDTH 16.1 % (9.6-15.2)
[2019-02-25 04:32] LABS: ANION GAP 4 mmol/L (5-15); CALCIUM 7.5 mg/dL (8.5-10.1); CHLORIDE 113 mmol/L (98-107)
[2019-02-25 04:34] LABS: CREATININE < 0.15 mg/dL (0.55-1.02)
[2019-02-25] MEDS: INSULIN LISPRO 100 UNITS/ML, PEN SQ-INSULIN SCH ×4 (05:54→18:15)
[2019-02-25] MEDS: HEPARIN 5,000 UNITS/ML, 1ML SQ SCH ×3 (05:54→23:30)
[2019-02-25] MEDS: FUROSEMIDE 20 MG/2 ML IV SCH ×2 (09:06→21:05)
[2019-02-25] MEDS: FAMOTIDINE 20 MG/2 ML IV SCH ×2 (09:06→21:05)
[2019-02-25] MEDS: SODIUM CHLORIDE FLUSH 10ML SYR IVF SCH ×2 (09:07→21:05)
[2019-02-25] MEDS ORDERED: SUCCINYLCHOLINE 20 MG/ML, 10ML ONE (14:29)
[2019-02-25] MEDS ORDERED: ETOMIDATE 20 MG/10 ML ONE (14:29)
[2019-02-25] MEDS: ACETAMINOPHEN 325 MG TABLET PO PRN ×2 (14:58→21:05)
[2019-02-25] MEDS: ATORVASTATIN 10 MG TABLET PO SCH (21:05)
[2019-02-25] MEDS ORDERED: SUCCINYLCHOLINE 20 MG/ML, 10ML IVPush ONE (23:00)
[2019-02-25] MEDS ORDERED: ETOMIDATE 20 MG/10 ML IVPush ONE (23:00)
[2019-02-26] MEDS: ALBUTEROL/IPRATROPIUM 2.5MG/0.5MG, 3 ML INLINE SCH ×6 (02:30→22:52)
[2019-02-26 04:00] VITALS: BP 101/58
[2019-02-26 04:39] LABS: BASOPHILS # (AUTO) 0.02 x10^3/uL (0-0.1); BASOPHILS % (AUTO) 0 % (0-1); EOSINOPHILS # (AUTO) 0.29 x10^3/uL (0-0.4); EOSINOPHILS % (AUTO) 3 % (1-7); LYMPHOCYTES # (AUTO) 2.24 x10^3/uL (1-3.4); LYMPHOCYTES % (AUTO) 24 % (22-44); MD NO; MEAN CORPUSCULAR HEMOGLOBIN 31.3 pg (27.0-34.8); MEAN CORPUSCULAR HGB CONC 33.3 g/dL (32.4-35.8); MEAN CORPUSCULAR VOLUME 94.2 fL (80-100); MEAN PLATELET VOLUME 7.7 fL (7.4-10.4); MONOCYTES # (AUTO) 0.71 x10^3/uL (0.2-0.8); MONOCYTES % (AUTO) 8 % (2-9); NEUTROPHILS # (AUTO) 6.13 x10^3/uL (1.8-6.8); NEUTROPHILS % (AUTO) 65 % (42-75); PLATELET COUNT 346 x10^3/uL (130-400); RED BLOOD COUNT 3.39 x10^6/uL (3.82-5.3); RED CELL DISTRIBUTION WIDTH 15.9 % (9.6-15.2)
[2019-02-26 04:53] LABS: ANION GAP 5 mmol/L (5-15); CHLORIDE 113 mmol/L (98-107); CREATININE 0.19 mg/dL (0.55-1.02)
[2019-02-26] MEDS: INSULIN LISPRO 100 UNITS/ML, PEN SQ-INSULIN SCH ×4 (05:56→18:00)
[2019-02-26] MEDS: HEPARIN 5,000 UNITS/ML, 1ML SQ SCH ×3 (05:56→23:03)
[2019-02-26] MEDS: QUETIAPINE 25MG TABLET PO SCH ×2 (10:37→18:01)
[2019-02-26] MEDS: FUROSEMIDE 20 MG/2 ML IV SCH ×2 (10:37→21:39)
[2019-02-26] MEDS: FAMOTIDINE 20 MG/2 ML IV SCH ×2 (10:37→21:38)
[2019-02-26] MEDS: SODIUM CHLORIDE FLUSH 10ML SYR IVF SCH ×2 (10:38→21:38)
[2019-02-26] MEDS: ATORVASTATIN 10 MG TABLET PO SCH (21:39)
[2019-02-27] MEDS: QUETIAPINE 25MG TABLET PO SCH ×3 (00:03→15:05)
[2019-02-27] MEDS: ALBUTEROL/IPRATROPIUM 2.5MG/0.5MG, 3 ML INLINE SCH ×6 (02:18→22:23)
[2019-02-27 04:00] VITALS: BP 97/45
[2019-02-27 05:15] LABS: BASOPHILS # (AUTO) 0.03 x10^3/uL (0-0.1); BASOPHILS % (AUTO) 0 % (0-1); EOSINOPHILS # (AUTO) 0.31 x10^3/uL (0-0.4); EOSINOPHILS % (AUTO) 3 % (1-7); LYMPHOCYTES # (AUTO) 1.94 x10^3/uL (1-3.4); LYMPHOCYTES % (AUTO) 17 % (22-44); MD NO; MEAN CORPUSCULAR HEMOGLOBIN 30.4 pg (27.0-34.8); MEAN CORPUSCULAR HGB CONC 32.6 g/dL (32.4-35.8); MEAN CORPUSCULAR VOLUME 93.4 fL (80-100); MEAN PLATELET VOLUME 7.7 fL (7.4-10.4); MONOCYTES # (AUTO) 0.66 x10^3/uL (0.2-0.8); MONOCYTES % (AUTO) 6 % (2-9); NEUTROPHILS # (AUTO) 8.38 x10^3/uL (1.8-6.8); NEUTROPHILS % (AUTO) 74 % (42-75); PLATELET COUNT 394 x10^3/uL (130-400); RED BLOOD COUNT 3.47 x10^6/uL (3.82-5.3); RED CELL DISTRIBUTION WIDTH 15.6 % (9.6-15.2)
[2019-02-27 05:26] LABS: ANION GAP 3 mmol/L (5-15); CALCIUM 8.7 mg/dL (8.5-10.1); CHLORIDE 112 mmol/L (98-107); CREATININE 0.27 mg/dL (0.55-1.02); TRIGLYCERIDES 261 mg/dL (50-200)
[2019-02-27] MEDS: INSULIN LISPRO 100 UNITS/ML, PEN SQ-INSULIN SCH ×4 (06:00→15:16)
[2019-02-27] MEDS: HEPARIN 5,000 UNITS/ML, 1ML SQ SCH ×3 (06:25→21:26)
[2019-02-27] MEDS: SODIUM CHLORIDE FLUSH 10ML SYR IVF SCH ×2 (09:38→21:26)
[2019-02-27] MEDS: FUROSEMIDE 20 MG/2 ML IV SCH ×2 (09:38→21:25)
[2019-02-27] MEDS: FAMOTIDINE 20 MG/2 ML IV SCH ×2 (09:38→21:25)
[2019-02-27] MEDS: ATORVASTATIN 10 MG TABLET PO SCH (21:26)
[2019-02-28] MEDS: ALBUTEROL/IPRATROPIUM 2.5MG/0.5MG, 3 ML INLINE SCH ×6 (02:11→21:42)
[2019-02-28] MEDS: QUETIAPINE 25MG TABLET PO SCH (02:28)
[2019-02-28 04:32] LABS: ANION GAP 4 mmol/L (5-15); CALCIUM 8.9 mg/dL (8.5-10.1); CHLORIDE 111 mmol/L (98-107); CREATININE 0.29 mg/dL (0.55-1.02)
[2019-02-28 04:35] LABS: BASOPHILS # (AUTO) 0.02 x10^3/uL (0-0.1); BASOPHILS % (AUTO) 0 % (0-1); EOSINOPHILS # (AUTO) 0.23 x10^3/uL (0-0.4); EOSINOPHILS % (AUTO) 2 % (1-7); LYMPHOCYTES # (AUTO) 2.19 x10^3/uL (1-3.4); LYMPHOCYTES % (AUTO) 19 % (22-44); MD NO; MEAN CORPUSCULAR HEMOGLOBIN 30.3 pg (27.0-34.8); MEAN CORPUSCULAR HGB CONC 32.3 g/dL (32.4-35.8); MEAN CORPUSCULAR VOLUME 93.9 fL (80-100); MEAN PLATELET VOLUME 7.9 fL (7.4-10.4); MONOCYTES # (AUTO) 0.76 x10^3/uL (0.2-0.8); MONOCYTES % (AUTO) 7 % (2-9); NEUTROPHILS # (AUTO) 8.53 x10^3/uL (1.8-6.8); NEUTROPHILS % (AUTO) 73 % (42-75); PLATELET COUNT 426 x10^3/uL (130-400); RED CELL DISTRIBUTION WIDTH 15.9 % (9.6-15.2)
[2019-02-28] MEDS: INSULIN LISPRO 100 UNITS/ML, PEN SQ-INSULIN SCH ×5 (06:00→23:34)
[2019-02-28] MEDS: HEPARIN 5,000 UNITS/ML, 1ML SQ SCH ×3 (06:12→21:39)
[2019-02-28] MEDS ORDERED: SCOPOLAMINE PATCH, 1.5MG PATCH.TD72 TD SCH (07:00)
[2019-02-28] MEDS: FAMOTIDINE 20 MG/2 ML IV SCH ×2 (09:50→21:39)
[2019-02-28] MEDS: FUROSEMIDE 20 MG/2 ML IV SCH ×2 (09:50→21:39)
[2019-02-28] MEDS ORDERED: POTASSIUM CHLORIDE 10% 40 MEQ/30 ML UDC PO ONE (12:00)
[2019-02-28] MEDS: SODIUM CHLORIDE FLUSH 10ML SYR IVF SCH ×2 (14:45→21:40)
[2019-02-28] MEDS: ATORVASTATIN 10 MG TABLET PO SCH (21:39)
[2019-03-01] MEDS: FENTANYL PF 100 MCG/2ML IVPush PRN (00:45)
[2019-03-01] MEDS: ALBUTEROL/IPRATROPIUM 2.5MG/0.5MG, 3 ML INLINE SCH ×2 (02:37→06:40)
[2019-03-01 06:00] LABS: ANION GAP 6 mmol/L (5-15); CALCIUM 9.7 mg/dL (8.5-10.1); CHLORIDE 111 mmol/L (98-107)
[2019-03-01] MEDS: INSULIN LISPRO 100 UNITS/ML, PEN SQ-INSULIN SCH ×3 (06:00→16:03)
[2019-03-01 06:02] LABS: CREATININE 0.39 mg/dL (0.55-1.02)
[2019-03-01] MEDS: HEPARIN 5,000 UNITS/ML, 1ML SQ SCH ×3 (06:18→22:43)
[2019-03-01 06:20] LABS: BASOPHILS # (AUTO) 0.05 x10^3/uL (0-0.1); BASOPHILS % (AUTO) 0 % (0-1); EOSINOPHILS # (AUTO) 0.22 x10^3/uL (0-0.4); EOSINOPHILS % (AUTO) 2 % (1-7); LYMPHOCYTES # (AUTO) 1.92 x10^3/uL (1-3.4); LYMPHOCYTES % (AUTO) 13 % (22-44); MD NO; MEAN CORPUSCULAR HGB CONC 33.1 g/dL (32.4-35.8); MEAN CORPUSCULAR VOLUME 93.4 fL (80-100); MEAN PLATELET VOLUME 7.7 fL (7.4-10.4); MONOCYTES # (AUTO) 1.07 x10^3/uL (0.2-0.8); MONOCYTES % (AUTO) 8 % (2-9); NEUTROPHILS # (AUTO) 11.05 x10^3/uL (1.8-6.8); NEUTROPHILS % (AUTO) 77 % (42-75); PLATELET COUNT 513 x10^3/uL (130-400); RED BLOOD COUNT 4.18 x10^6/uL (3.82-5.3); RED CELL DISTRIBUTION WIDTH 15.9 % (9.6-15.2)
[2019-03-01] MEDS: FAMOTIDINE 20 MG/2 ML IV SCH (08:12)
[2019-03-01] MEDS: FUROSEMIDE 20 MG/2 ML IV SCH (08:12)
[2019-03-01] MEDS: SODIUM CHLORIDE FLUSH 10ML SYR IVF SCH ×2 (08:13→21:31)
[2019-03-01] MEDS: ALBUTEROL/IPRATROPIUM 2.5MG/0.5MG, 3 ML NPPB SCH ×4 (10:00→22:30)
[2019-03-01] MEDS: ATORVASTATIN 10 MG TABLET PO SCH (21:00)
[2019-03-02] MEDS: ALBUTEROL/IPRATROPIUM 2.5MG/0.5MG, 3 ML NPPB SCH ×6 (02:00→22:00)
[2019-03-02 05:20] LABS: CHLORIDE 110 mmol/L (98-107)
[2019-03-02 05:25] LABS: BASOPHILS # (AUTO) 0.07 x10^3/uL (0-0.1); BASOPHILS % (AUTO) 1 % (0-1); EOSINOPHILS # (AUTO) 0.27 x10^3/uL (0-0.4); EOSINOPHILS % (AUTO) 2 % (1-7); LYMPHOCYTES # (AUTO) 2.71 x10^3/uL (1-3.4); LYMPHOCYTES % (AUTO) 19 % (22-44); MD NO; MEAN CORPUSCULAR HEMOGLOBIN 31.4 pg (27.0-34.8); MEAN CORPUSCULAR HGB CONC 33.3 g/dL (32.4-35.8); MEAN CORPUSCULAR VOLUME 94.2 fL (80-100); MEAN PLATELET VOLUME 7.9 fL (7.4-10.4); MONOCYTES # (AUTO) 1.23 x10^3/uL (0.2-0.8); MONOCYTES % (AUTO) 9 % (2-9); NEUTROPHILS # (AUTO) 10.12 x10^3/uL (1.8-6.8); NEUTROPHILS % (AUTO) 70 % (42-75); PLATELET COUNT 600 x10^3/uL (130-400); RED CELL DISTRIBUTION WIDTH 15.9 % (9.6-15.2)
[2019-03-02 05:41] LABS: ANION GAP 6 mmol/L (5-15); CALCIUM 10.3 mg/dL (8.5-10.1); CREATININE 0.31 mg/dL (0.55-1.02)
[2019-03-02] MEDS: INSULIN LISPRO 100 UNITS/ML, PEN SQ-INSULIN SCH ×2 (05:55)
[2019-03-02] MEDS: HEPARIN 5,000 UNITS/ML, 1ML SQ SCH ×3 (06:09→21:48)
[2019-03-02] MEDS ORDERED: morphine SULFATE 10 MG/ML, 1ML IVPush PRN (08:30)
[2019-03-02] MEDS: FUROSEMIDE 20 MG/2 ML IV SCH (09:20)
[2019-03-02] MEDS: SODIUM CHLORIDE FLUSH 10ML SYR IVF SCH ×2 (09:20→21:46)
[2019-03-02] MEDS ORDERED: MIDAZOLAM 1 MG/ML, 5ML ONE (10:01)
[2019-03-02] MEDS ORDERED: SUCCINYLCHOLINE 20 MG/ML, 10ML ONE (10:01)
[2019-03-02] MEDS ORDERED: PROPOFOL 10 MG/ML, 20ML ONE (10:01)
[2019-03-02 10:15] LABS: TROPONIN I < 0.015 ng/mL (0.000-0.045)
[2019-03-02] MEDS ORDERED: SUCCINYLCHOLINE 20 MG/ML, 10ML IVPush ONE (10:20)
[2019-03-02] MEDS ORDERED: MIDAZOLAM 1 MG/ML, 5ML IVPush ONE (10:20)
[2019-03-02] MEDS ORDERED: SODIUM CHLORIDE 0.9% 1,000ML IVBOLUS ONE (12:00)
[2019-03-02] MEDS: SODIUM CHLORIDE 0.9% 1,000 ML IV SCH (16:46)
[2019-03-02] MEDS ORDERED: PROPOFOL 100 ML IV PRN (18:59)
[2019-03-02] MEDS ORDERED: LIDOCAINE-MPF 1%, 2ML ENDO PRN (19:00)
[2019-03-02] MEDS ORDERED: PHARMACY MAY ADJ FOR RENAL FX MC SCH (19:00)
[2019-03-02] MEDS: PROPOFOL 100 ML IV PRN ×2 (19:15→23:35)
[2019-03-02] MEDS: ATORVASTATIN 10 MG TABLET PO SCH (21:48)
[2019-03-03] MEDS: ALBUTEROL/IPRATROPIUM 2.5MG/0.5MG, 3 ML NPPB SCH ×6 (02:45→22:10)
[2019-03-03 04:30] VITALS: BP 110/60
[2019-03-03 04:31] LABS: BASOPHILS % (AUTO) 1 % (0-1); EOSINOPHILS # (AUTO) 0.16 x10^3/uL (0-0.4); EOSINOPHILS % (AUTO) 1 % (1-7); LYMPHOCYTES # (AUTO) 3.33 x10^3/uL (1-3.4); LYMPHOCYTES % (AUTO) 24 % (22-44); MD NO; MEAN CORPUSCULAR HEMOGLOBIN 31.3 pg (27.0-34.8); MEAN CORPUSCULAR HGB CONC 33.4 g/dL (32.4-35.8); MEAN CORPUSCULAR VOLUME 93.7 fL (80-100); MEAN PLATELET VOLUME 7.9 fL (7.4-10.4); MONOCYTES # (AUTO) 1.19 x10^3/uL (0.2-0.8); MONOCYTES % (AUTO) 9 % (2-9); NEUTROPHILS % (AUTO) 66 % (42-75); PLATELET COUNT 526 x10^3/uL (130-400); RED BLOOD COUNT 4.08 x10^6/uL (3.82-5.3); RED CELL DISTRIBUTION WIDTH 15.5 % (9.6-15.2)
[2019-03-03] MEDS: SODIUM CHLORIDE 0.9% 1,000 ML IV SCH (04:31)
[2019-03-03 04:39] LABS: ANION GAP 8 mmol/L (5-15); CHLORIDE 116 mmol/L (98-107)
[2019-03-03] MEDS: HEPARIN 5,000 UNITS/ML, 1ML SQ SCH ×3 (06:21→22:24)
[2019-03-03] MEDS: POTASSIUM CHLORIDE 20 MEQ TAB.ER.PRT PO SCH ×2 (07:49→15:19)
[2019-03-03] MEDS: SODIUM CHLORIDE FLUSH 10ML SYR IVF SCH ×2 (07:50→20:16)
[2019-03-03] MEDS: FUROSEMIDE 20 MG/2 ML IV SCH (07:50)
[2019-03-03] MEDS: FAMOTIDINE 20 MG/2 ML IVPush SCH ×2 (08:18→20:16)
[2019-03-03] MEDS: PROPOFOL 100 ML IV PRN ×3 (08:19→20:22)
[2019-03-03] MEDS: ACETAMINOPHEN 325 MG TABLET PO PRN (18:29)
[2019-03-03] MEDS: ATORVASTATIN 10 MG TABLET PO SCH (20:16)
[2019-03-04] MEDS: PROPOFOL 100 ML IV PRN ×5 (00:41→23:22)
[2019-03-04] MEDS: ALBUTEROL/IPRATROPIUM 2.5MG/0.5MG, 3 ML NPPB SCH ×7 (02:10→21:40)
[2019-03-04 04:33] LABS: BASOPHILS # (AUTO) 0.11 x10^3/uL (0-0.1); BASOPHILS % (AUTO) 1 % (0-1); EOSINOPHILS # (AUTO) 0.17 x10^3/uL (0-0.4); EOSINOPHILS % (AUTO) 2 % (1-7); LYMPHOCYTES # (AUTO) 2.56 x10^3/uL (1-3.4); LYMPHOCYTES % (AUTO) 26 % (22-44); MD NO; MEAN CORPUSCULAR HEMOGLOBIN 31.3 pg (27.0-34.8); MEAN CORPUSCULAR HGB CONC 33.6 g/dL (32.4-35.8); MEAN CORPUSCULAR VOLUME 93.1 fL (80-100); MEAN PLATELET VOLUME 7.9 fL (7.4-10.4); MONOCYTES # (AUTO) 0.75 x10^3/uL (0.2-0.8); MONOCYTES % (AUTO) 8 % (2-9); NEUTROPHILS # (AUTO) 6.31 x10^3/uL (1.8-6.8); NEUTROPHILS % (AUTO) 64 % (42-75); PLATELET COUNT 451 x10^3/uL (130-400); RED BLOOD COUNT 3.85 x10^6/uL (3.82-5.3); RED CELL DISTRIBUTION WIDTH 15.2 % (9.6-15.2)
[2019-03-04 04:37] LABS: ANION GAP 8 mmol/L (5-15); CALCIUM 8.8 mg/dL (8.5-10.1); CHLORIDE 116 mmol/L (98-107); CREATININE 0.27 mg/dL (0.55-1.02)
[2019-03-04] MEDS: HEPARIN 5,000 UNITS/ML, 1ML SQ SCH ×3 (06:30→21:45)
[2019-03-04] MEDS: FAMOTIDINE 20 MG/2 ML IVPush SCH ×2 (09:04→21:46)
[2019-03-04] MEDS: SODIUM CHLORIDE FLUSH 10ML SYR IVF SCH ×2 (09:04→21:45)
[2019-03-04] MEDS: ATORVASTATIN 10 MG TABLET PO SCH (21:46)
[2019-03-05] MEDS: ALBUTEROL/IPRATROPIUM 2.5MG/0.5MG, 3 ML NPPB SCH ×6 (02:15→22:35)
[2019-03-05] MEDS: PROPOFOL 100 ML IV PRN ×5 (03:25→23:44)
[2019-03-05] MEDS: HEPARIN 5,000 UNITS/ML, 1ML SQ SCH ×3 (05:55→22:52)
[2019-03-05 06:23] LABS: BASOPHILS # (AUTO) 0.06 x10^3/uL (0-0.1); BASOPHILS % (AUTO) 1 % (0-1); EOSINOPHILS # (AUTO) 0.13 x10^3/uL (0-0.4); EOSINOPHILS % (AUTO) 2 % (1-7); LYMPHOCYTES # (AUTO) 1.94 x10^3/uL (1-3.4); LYMPHOCYTES % (AUTO) 22 % (22-44); MD NO; MEAN CORPUSCULAR HEMOGLOBIN 31.1 pg (27.0-34.8); MEAN CORPUSCULAR HGB CONC 33.4 g/dL (32.4-35.8); MEAN CORPUSCULAR VOLUME 92.9 fL (80-100); MONOCYTES # (AUTO) 0.64 x10^3/uL (0.2-0.8); MONOCYTES % (AUTO) 7 % (2-9); NEUTROPHILS # (AUTO) 6.12 x10^3/uL (1.8-6.8); NEUTROPHILS % (AUTO) 69 % (42-75); PLATELET COUNT 467 x10^3/uL (130-400); RED BLOOD COUNT 3.65 x10^6/uL (3.82-5.3); RED CELL DISTRIBUTION WIDTH 15.7 % (9.6-15.2)
[2019-03-05 06:33] LABS: ANION GAP 8 mmol/L (5-15); CALCIUM 8.8 mg/dL (8.5-10.1); CHLORIDE 117 mmol/L (98-107); CREATININE 0.21 mg/dL (0.55-1.02); INTERNATIONAL NORMALIZED RATIO 0.94 (0.93-1.1); PROTHROMBIN TIME 9.9 Seconds (9.6-11.5); TRIGLYCERIDES 318 mg/dL (50-200)
[2019-03-05] MEDS ORDERED: POTASSIUM CHLORIDE 20 MEQ TAB.ER.PRT PO ONE (07:00)
[2019-03-05] MEDS: SODIUM CHLORIDE FLUSH 10ML SYR IVF SCH ×2 (09:52→20:24)
[2019-03-05] MEDS: FAMOTIDINE 20 MG/2 ML IVPush SCH ×2 (10:52→22:52)
[2019-03-05] MEDS: ATORVASTATIN 10 MG TABLET PO SCH (22:52)
[2019-03-06] MEDS: ALBUTEROL/IPRATROPIUM 2.5MG/0.5MG, 3 ML NPPB SCH ×6 (02:17→22:51)
[2019-03-06] MEDS: HEPARIN 5,000 UNITS/ML, 1ML SQ SCH ×3 (04:06→22:11)
[2019-03-06] MEDS: PROPOFOL 100 ML IV PRN ×2 (04:09→10:53)
[2019-03-06 04:44] LABS: BASOPHILS # (AUTO) 0.08 x10^3/uL (0-0.1); BASOPHILS % (AUTO) 1 % (0-1); EOSINOPHILS # (AUTO) 0.12 x10^3/uL (0-0.4); EOSINOPHILS % (AUTO) 2 % (1-7); LYMPHOCYTES # (AUTO) 1.82 x10^3/uL (1-3.4); LYMPHOCYTES % (AUTO) 23 % (22-44); MD NO; MEAN CORPUSCULAR HEMOGLOBIN 31.6 pg (27.0-34.8); MEAN CORPUSCULAR HGB CONC 33.6 g/dL (32.4-35.8); MEAN CORPUSCULAR VOLUME 93.9 fL (80-100); MEAN PLATELET VOLUME 8.3 fL (7.4-10.4); MONOCYTES # (AUTO) 0.62 x10^3/uL (0.2-0.8); MONOCYTES % (AUTO) 8 % (2-9); NEUTROPHILS # (AUTO) 5.34 x10^3/uL (1.8-6.8); NEUTROPHILS % (AUTO) 67 % (42-75); PLATELET COUNT 441 x10^3/uL (130-400); RED BLOOD COUNT 3.66 x10^6/uL (3.82-5.3); RED CELL DISTRIBUTION WIDTH 15.7 % (9.6-15.2)
[2019-03-06 04:52] LABS: ANION GAP 6 mmol/L (5-15); CALCIUM 9.1 mg/dL (8.5-10.1); CHLORIDE 117 mmol/L (98-107)
[2019-03-06 04:54] LABS: CREATININE 0.21 mg/dL (0.55-1.02)
[2019-03-06] MEDS: FAMOTIDINE 20 MG/2 ML IVPush SCH ×2 (10:53→22:11)
[2019-03-06] MEDS: SODIUM CHLORIDE FLUSH 10ML SYR IVF SCH ×2 (10:53→22:11)
[2019-03-06] MEDS ORDERED: MIDAZOLAM 1 MG/ML, 5ML ONE (12:55)
[2019-03-06] MEDS ORDERED: VECURONIUM 10 MG ONE (12:56)
[2019-03-06] MEDS: OXYcodone IR 5MG TABLET PO PRN (16:12)
[2019-03-06] MEDS: DEXMEDETOMIDINE 200 MCG in SODIUM CHLORIDE 0.9% 48 ML IV PRN ×2 (16:23→22:09)
[2019-03-06] MEDS: ATORVASTATIN 10 MG TABLET PO SCH (22:11)
[2019-03-07] MEDS: ALBUTEROL/IPRATROPIUM 2.5MG/0.5MG, 3 ML NPPB SCH ×6 (02:59→22:12)
[2019-03-07 04:24] LABS: BASOPHILS # (AUTO) 0.07 x10^3/uL (0-0.1); BASOPHILS % (AUTO) 1 % (0-1); EOSINOPHILS # (AUTO) 0.18 x10^3/uL (0-0.4); EOSINOPHILS % (AUTO) 2 % (1-7); LYMPHOCYTES # (AUTO) 1.77 x10^3/uL (1-3.4); LYMPHOCYTES % (AUTO) 20 % (22-44); MD NO; MEAN CORPUSCULAR HEMOGLOBIN 31.2 pg (27.0-34.8); MEAN CORPUSCULAR HGB CONC 33.6 g/dL (32.4-35.8); MEAN CORPUSCULAR VOLUME 92.8 fL (80-100); MONOCYTES # (AUTO) 0.56 x10^3/uL (0.2-0.8); MONOCYTES % (AUTO) 6 % (2-9); NEUTROPHILS # (AUTO) 6.11 x10^3/uL (1.8-6.8); NEUTROPHILS % (AUTO) 70 % (42-75); PLATELET COUNT 404 x10^3/uL (130-400); RED BLOOD COUNT 3.68 x10^6/uL (3.82-5.3); RED CELL DISTRIBUTION WIDTH 16.3 % (9.6-15.2)
[2019-03-07 04:30] LABS: ANION GAP 10 mmol/L (5-15); CALCIUM 9.1 mg/dL (8.5-10.1); CHLORIDE 116 mmol/L (98-107); CREATININE 0.29 mg/dL (0.55-1.02)
[2019-03-07] MEDS: HEPARIN 5,000 UNITS/ML, 1ML SQ SCH ×3 (06:27→21:46)
[2019-03-07] MEDS: DEXMEDETOMIDINE 200 MCG in SODIUM CHLORIDE 0.9% 48 ML IV PRN (07:10)
[2019-03-07] MEDS: SODIUM CHLORIDE FLUSH 10ML SYR IVF SCH ×2 (08:30→21:46)
[2019-03-07] MEDS: FAMOTIDINE 20 MG/2 ML IVPush SCH ×2 (08:30→21:46)
[2019-03-07] MEDS: ATORVASTATIN 10 MG TABLET PO SCH ×2 (21:46→21:49)
[2019-03-08] MEDS: ALBUTEROL/IPRATROPIUM 2.5MG/0.5MG, 3 ML NPPB SCH ×6 (03:00→22:27)
[2019-03-08 04:38] LABS: MEAN CORPUSCULAR HEMOGLOBIN 31.2 pg (27.0-34.8); MEAN CORPUSCULAR HGB CONC 32.9 g/dL (32.4-35.8); MEAN CORPUSCULAR VOLUME 94.8 fL (80-100); MEAN PLATELET VOLUME 8.2 fL (7.4-10.4); PLATELET COUNT 317 x10^3/uL (130-400); RED BLOOD COUNT 3.85 x10^6/uL (3.82-5.3); RED CELL DISTRIBUTION WIDTH 15.9 % (9.6-15.2)
[2019-03-08 04:48] LABS: MD YES
[2019-03-08 04:50] LABS: <PLATELET ESTIMATE> ADEQUATE; <PLT MORPHOLOGY> NORMAL PLT MORPH; <RBC MORPHOLOGY> NORMAL; BASOS#(MANUAL) 0.09 x10^3/uL (0-0.1); BASOS% (MANUAL) 1 % (0-1); EOS#(MANUAL) 0.09 x10^3/uL (0.0-0.4); EOS% (MANUAL) 1 % (1-7); LYMPH#(MANUAL) 1.55 x10^3/uL (1-3.4); LYMPHS% (MANUAL) 17 % (22-44); MONOS#(MANUAL) 0.36 x10^3/uL (0.3-2.7); MONOS% (MANUAL) 4 % (2-9); SEG#(MANUAL) 7.01 x10^3/uL (1.8-6.8); SEGS% (MANUAL) 77 % (42-75)
[2019-03-08 04:52] LABS: ANION GAP 6 mmol/L (5-15); CALCIUM 8.5 mg/dL (8.5-10.1); CHLORIDE 118 mmol/L (98-107); CREATININE 0.19 mg/dL (0.55-1.02); TRIGLYCERIDES 189 mg/dL (50-200)
[2019-03-08] MEDS ORDERED: PROPOFOL 100 ML IV PRN (06:00)
[2019-03-08] MEDS: HEPARIN 5,000 UNITS/ML, 1ML SQ SCH ×3 (06:02→22:26)
[2019-03-08] MEDS ORDERED: POTASSIUM CHLORIDE 20 MEQ in SODIUM CHLORIDE 0.9% 250 ML IV ONE ×2 (06:30→09:30)
[2019-03-08] MEDS ORDERED: SODIUM CHLORIDE 0.9% 1,000 ML IV SCH (07:00)
[2019-03-08] MEDS ORDERED: FUROSEMIDE 20 MG/2 ML IV ONE (08:30)
[2019-03-08] MEDS: SODIUM CHLORIDE FLUSH 10ML SYR IVF SCH ×2 (09:22→21:00)
[2019-03-08] MEDS: FAMOTIDINE 20 MG/2 ML IVPush SCH ×2 (09:22→21:00)
--- NOTE | 2019-03-08 09:32 | NUR ---
After PEG placed, TF goal changed to : Jevity 1.2 @ 60 ml/hour
[2019-03-08] MEDS ORDERED: ZOSYN PER PHARMACY MC PRN (12:30)
[2019-03-08] MEDS: PIPERACILLIN/TAZO/PMX 3.375GM 50 ML IV SCH ×2 (13:48→19:24)
[2019-03-08] MEDS ORDERED: PROPOFOL 10 MG/ML, 20ML ONE (14:22)
[2019-03-08] MEDS ORDERED: POTASSIUM CHLORIDE 40 MEQ in SODIUM CHLORIDE 0.9% 500 ML IV ONE (17:00)
[2019-03-08] MEDS: OXYcodone IR 5MG TABLET PO PRN (21:00)
[2019-03-08] MEDS: ATORVASTATIN 10 MG TABLET PO SCH (21:00)
[2019-03-09] MEDS: PIPERACILLIN/TAZO/PMX 3.375GM 50 ML IV SCH ×3 (02:00→12:29)
[2019-03-09] MEDS: ALBUTEROL/IPRATROPIUM 2.5MG/0.5MG, 3 ML NPPB SCH ×3 (02:20→10:54)
[2019-03-09] MEDS: OXYcodone IR 5MG TABLET PO PRN (03:04)
[2019-03-09 04:19] LABS: MEAN CORPUSCULAR HEMOGLOBIN 30.3 pg (27.0-34.8); MEAN CORPUSCULAR VOLUME 94.7 fL (80-100); PLATELET COUNT 393 x10^3/uL (130-400); RED BLOOD COUNT 3.59 x10^6/uL (3.82-5.3); RED CELL DISTRIBUTION WIDTH 15.8 % (9.6-15.2)
[2019-03-09 04:21] LABS: ANION GAP 7 mmol/L (5-15); CALCIUM 9.1 mg/dL (8.5-10.1); CHLORIDE 120 mmol/L (98-107)
[2019-03-09 05:46] LABS: MD YES
[2019-03-09 05:48] LABS: <RBC MORPHOLOGY> NORMAL; LYMPH#(MANUAL) 3.15 x10^3/uL (1-3.4); LYMPHS% (MANUAL) 18 % (22-44); MONOS#(MANUAL) 0.18 x10^3/uL (0.3-2.7); MONOS% (MANUAL) 1 % (2-9); SEG#(MANUAL) 14.18 x10^3/uL (1.8-6.8); SEGS% (MANUAL) 81 % (42-75)
[2019-03-09 05:49] LABS: <PLATELET ESTIMATE> ADEQUATE; <PLT MORPHOLOGY> NORMAL PLT MORPH
[2019-03-09] MEDS: HEPARIN 5,000 UNITS/ML, 1ML SQ SCH (06:09)
[2019-03-09] MEDS: FAMOTIDINE 20 MG/2 ML IVPush SCH (08:40)
[2019-03-09] MEDS: SODIUM CHLORIDE FLUSH 10ML SYR IVF SCH (08:40)
[2019-03-09] MEDS ORDERED: ALPR0.254 PO (12:52)
[2019-03-09] MEDS ORDERED: LACT20SO13 NG (12:52)
[2019-03-09] MEDS ORDERED: MORP10VI10 IVPush (12:52)
[2019-03-09] MEDS ORDERED: ACET650S12 PR (12:52)
[2019-03-09] MEDS ORDERED: ONDA4TAB13 PO (12:52)
[2019-03-09] MEDS ORDERED: BISA10SU54 PR ×2 (12:52)
[2019-03-09] MEDS ORDERED: PIPE3.375 IV (12:52)
[2019-03-09] MEDS ORDERED: IPRA3AMP30 NPPB (12:52)
[2019-03-09] MEDS ORDERED: OXYC5TAB3 PO (12:52)
[2019-03-09] MEDS ORDERED: HYDR20VI3 IVPush (12:52)
[2019-03-09] MEDS ORDERED: 0.92DISP2 IVF (12:52)
[2019-03-09] MEDS ORDERED: POLY17PO5 PO (12:52)
[2019-03-09] MEDS ORDERED: FAMO20VI3 IVPush (12:52)
[2019-03-09] MEDS ORDERED: ATOR10TA9 PO (12:52)
[2019-03-09] MEDS ORDERED: ACET325T14 PO (12:52)
[2019-03-09] MEDS ORDERED: LIDO10VI34 ENDO (12:52)
[2019-03-09] MEDS ORDERED: DOCU-131 PO (12:52)
[2019-03-09] MEDS ORDERED: DEXT50DI3 IVPush (12:52)
[2019-03-09] MEDS ORDERED: HEPA50002 SQ (12:52)
== END 2019-03-09 13:34 | DRG 3 ==
LOC: ED 18:09 → EDIP 21:30 → ICU 02-19 07:52 → CCU 02-19 17:02
PROVIDERS: ADMIT Internal Medicine; ATTEND Internal Medicine
PROC: 5A1955Z Respiratory Ventilation, Greater than 96 Consecutive Hours (ICD-10-PCS; principal; 2019-02-18)
PROC: 02HV33Z Insertion of Infusion Device into Superior Vena Cava, Percutaneous Approach (ICD-10-PCS; 2019-02-18)
PROC: B548ZZA Ultrasonography of Superior Vena Cava, Guidance (ICD-10-PCS; 2019-02-18)
PROC: 0BH17EZ Insertion of Endotracheal Airway into Trachea, Via Natural or Artificial Opening (ICD-10-PCS; 2019-02-18)
PROC: 0BH17EZ Insertion of Endotracheal Airway into Trachea, Via Natural or Artificial Opening (ICD-10-PCS; 2019-02-25)
PROC: 0BH17EZ Insertion of Endotracheal Airway into Trachea, Via Natural or Artificial Opening (ICD-10-PCS; 2019-03-02)
PROC: 0T9B70Z Drainage of Bladder with Drainage Device, Via Natural or Artificial Opening (ICD-10-PCS; 2019-03-02)
PROC: 0B9G8ZZ Drainage of Left Upper Lung Lobe, Via Natural or Artificial Opening Endoscopic (ICD-10-PCS; 2019-03-02)
PROC: 0B9J8ZZ Drainage of Left Lower Lung Lobe, Via Natural or Artificial Opening Endoscopic (ICD-10-PCS; 2019-03-02)
PROC: 0B9J8ZX Drainage of Left Lower Lung Lobe, Via Natural or Artificial Opening Endoscopic, Diagnostic (ICD-10-PCS; 2019-03-02)
PROC: 0B928ZZ Drainage of Carina, Via Natural or Artificial Opening Endoscopic (ICD-10-PCS; 2019-03-02)
PROC: 0B918ZZ Drainage of Trachea, Via Natural or Artificial Opening Endoscopic (ICD-10-PCS; 2019-03-02)
PROC: 0B978ZZ Drainage of Left Main Bronchus, Via Natural or Artificial Opening Endoscopic (ICD-10-PCS; 2019-03-02)
PROC: 0B998ZZ Drainage of Lingula Bronchus, Via Natural or Artificial Opening Endoscopic (ICD-10-PCS; 2019-03-02)
PROC: 0B113F4 Bypass Trachea to Cutaneous with Tracheostomy Device, Percutaneous Approach (ICD-10-PCS; 2019-03-06)
PROC: 0B9J8ZZ Drainage of Left Lower Lung Lobe, Via Natural or Artificial Opening Endoscopic (ICD-10-PCS; 2019-03-06)
PROC: 0B9F8ZZ Drainage of Right Lower Lung Lobe, Via Natural or Artificial Opening Endoscopic (ICD-10-PCS; 2019-03-06)
PROC: 0B9F8ZX Drainage of Right Lower Lung Lobe, Via Natural or Artificial Opening Endoscopic, Diagnostic (ICD-10-PCS; 2019-03-06)
PROC: 0DH63UZ Insertion of Feeding Device into Stomach, Percutaneous Approach (ICD-10-PCS; 2019-03-08)
DX: A41.9 Sepsis, unspecified organism (principal); R65.21 Severe sepsis with septic shock; J69.0 Pneumonitis due to inhalation of food and vomit; J96.01 Acute respiratory failure with hypoxia; E43 Unspecified severe protein-calorie malnutrition; J15.9 Unspecified bacterial pneumonia; Z99.11 Dependence on respirator [ventilator] status; E27.40 Unspecified adrenocortical insufficiency; E87.0 Hyperosmolality and hypernatremia; E87.2 Acidosis; I24.8 Other forms of acute ischemic heart disease; J98.11 Atelectasis; G93.49 Other encephalopathy; E78.00 Pure hypercholesterolemia, unspecified; E78.5 Hyperlipidemia, unspecified; E86.0 Dehydration; E87.6 Hypokalemia; G71.00 Muscular dystrophy, unspecified; G71.11 Myotonic muscular dystrophy; Z51.5 Encounter for palliative care; Z78.1 Physical restraint status; Z83.3 Family history of diabetes mellitus; Z87.820 Personal history of traumatic brain injury; Z90.710 Acquired absence of both cervix and uterus; Z99.3 Dependence on wheelchair; Z68.24 Body mass index [BMI] 24.0-24.9, adult
CPT/HCPCS: 31500; 31624; 36415; 36569; 36600; 71045; 71275; 74018; 76770; 80048; 80053; 80061; 80307; 81001; 82040; 82533; 82803; 82947; 82962; 83036; 83605; 83735; 84145; 84439; 84443; 84478; 84484; 84703; 85025; 85610; 85730; 87040; 87070; 87077; 87081; 87086; 87102; 87116; 87186; 87205; 87206; 88112; 88305; 93005; 93306; 93308; 93321; 93325; 94002; 94003; 94150; 94640; B4087; G0378; J0696; J1644; J2250; J2543; J2704; J3010; J3480; J7070; J7620; Q9967; J0330; J1720; J1815; J1940; J2270; J3475; J3490; J7030; J7040; J7050